=== PATIENT | male | born 1955 | race Asian ===

== ENCOUNTER → 2020-06-29 14:26 | Outpatient (BNVA) | payer MEDICARE, SELFPAY | PROVIDERS: PCP Internal Medicine; Visit Provider Urology | DX: I77.1 Stricture of artery (principal); N52.1 Erectile dysfunction due to diseases classified elsewhere | CPT/HCPCS: 99202 ==

== ENCOUNTER 2020-08-26 12:21 | Outpatient (REF) | payer MEDICARE, SELFPAY ==
[2020-08-26 13:49] LABS: MANUAL DIFF FLAG NO
[2020-08-26 14:01] LABS: Basophils Absolute Auto 0.1 X10*3/uL (0.0-0.2); Basophils Percent Auto 0.8 % (0-2); Eosinophils Absolute Auto 0.4 X10*3/uL (0.0-0.4); Eosinophils Percent Auto 4.9 % (0-4); Hematocrit 45.6 % (42-52); Hemoglobin 15.4 g/dl (14.0-18.0); Imm Gran Abs Auto 0.04 X10*3/uL (0.00-0.03); Imm Gran Pct Auto 0.6 % (0.0-0.4); Lymphocytes Absolute Auto 2.1 X10*3/uL (1.2-4.9); Lymphocytes Percent Auto 29.8 % (20-40); Mean Corpuscular HGB Conc 33.8 g/dl (31.0-36.0); Mean Corpuscular Hemoglobin 31.5 pg (27.0-33.0); Mean Corpuscular Volume 93.3 fL (80-98); Mean Platelet Volume 12.8 fL (9.4-12.4); Monocytes Absolute Auto 0.5 X10*3/uL (0.1-1.2); Monocytes Percent Auto 7.3 % (2-11); Neutrophils Percent Auto 56.6 % (45-73); Platelet Count 145 X10*3/uL (160-400); Red Blood Count 4.89 X10*6/uL (4.60-5.80); Red Cell Distribution Width 11.8 % (11.0-16.0); White Blood Count 7.1 X10*3/uL (4.8-10.8)
[2020-08-26 14:09] LABS: Estimated Average Glucose 128 mg/dL; Hemoglobin A1c % 6.1 %
[2020-08-26 14:26] LABS: Alanine Aminotransferase 94 U/L (0-40); Albumin Level 4.3 g/dL (3.5-5.0); Alkaline Phosphatase 59 U/L (39-117); Anion Gap 12 (12-20); Aspartate Amino Transferase 53 U/L (5-37); Bilirubin Total 0.9 mg/dL (0.0-1.0); Blood Urea Nitrogen 13 mg/dL (9-16); Calcium 9.3 mg/dL (8.4-10.2); Carbon Dioxide 30 mmol/L (22-29); Chloride 105 mmol/L (96-108); Estimated Glomerular Filt Rate > 60; Glucose Random 106 mg/dL (60-115); Sodium 142 mmol/L (135-145); Total Protein 7.8 g/dL (6.5-8.0)
== END 2020-08-26 12:22 | disposition home or self-care (01) ==
LOC: HO.HMGCLDS 12:21
PROVIDERS: PCP Internal Medicine; Visit Provider Internal Medicine
DX: I10 Essential (primary) hypertension (principal); R94.5 Abnormal results of liver function studies; N40.0 Benign prostatic hyperplasia without lower urinary tract symptoms; R73.03 Prediabetes; K42.9 Umbilical hernia without obstruction or gangrene; F52.21 Male erectile disorder; E66.09 Other obesity due to excess calories; D69.6 Thrombocytopenia, unspecified; Z68.32 Body mass index [BMI] 32.0-32.9, adult
CPT/HCPCS: 36415; 80053; 83036; 85025

== ENCOUNTER 2020-12-31 14:30 | Outpatient (REF) | payer MEDICARE, SELFPAY ==
[2020-12-31 16:50] LABS: Alanine Aminotransferase 90 U/L (0-40); Albumin Level 4.4 g/dL (3.5-5.0); Alkaline Phosphatase 66 U/L (39-117); Anion Gap 14 (12-20); Aspartate Amino Transferase 46 U/L (5-37); Bilirubin Total 0.9 mg/dL (0.0-1.0); Blood Urea Nitrogen 14 mg/dL (9-16); Calcium 9.3 mg/dL (8.4-10.2); Carbon Dioxide 25 mmol/L (22-29); Chloride 104 mmol/L (96-108); Estimated Glomerular Filt Rate > 60; Glucose Random 92 mg/dL (60-115); Potassium 4.1 mmol/L (3.3-5.1); Sodium 139 mmol/L (135-145); Total Protein 7.9 g/dL (6.5-8.0)
== END 2020-12-31 14:31 | disposition home or self-care (01) ==
LOC: HO.HMGCLDS 14:30
PROVIDERS: PCP Internal Medicine; Visit Provider Internal Medicine
DX: E66.9 Obesity, unspecified (principal); I10 Essential (primary) hypertension; K76.0 Fatty (change of) liver, not elsewhere classified; R73.03 Prediabetes; R79.89 Other specified abnormal findings of blood chemistry
CPT/HCPCS: 36415; 80053

== ENCOUNTER 2021-07-07 11:42 | Outpatient (REF) | payer MEDICARE, SELFPAY ==
[2021-07-07 13:56] LABS: Estimated Average Glucose 126 mg/dL
[2021-07-07 14:21] LABS: Alanine Aminotransferase 57 U/L (0-40); Albumin Level 4.2 g/dL (3.5-5.0); Alkaline Phosphatase 57 U/L (39-117); Anion Gap 13 (12-20); Aspartate Amino Transferase 37 U/L (5-37); Bilirubin Total 0.9 mg/dL (0.0-1.0); Blood Urea Nitrogen 16 mg/dL (9-16); Calcium 9.6 mg/dL (8.4-10.2); Carbon Dioxide 23 mmol/L (22-29); Chloride 106 mmol/L (96-108); Estimated Glomerular Filt Rate > 60; Glucose Random 105 mg/dL (60-115); Potassium 4.4 mmol/L (3.3-5.1); Sodium 138 mmol/L (135-145); Total Protein 7.4 g/dL (6.5-8.0)
== END 2021-07-07 11:43 | disposition home or self-care (01) ==
LOC: HO.HMGCLDS 11:42
PROVIDERS: PCP Internal Medicine; Visit Provider Internal Medicine
DX: K42.9 Umbilical hernia without obstruction or gangrene (principal); R94.5 Abnormal results of liver function studies; E66.9 Obesity, unspecified; R73.03 Prediabetes; K76.0 Fatty (change of) liver, not elsewhere classified; I10 Essential (primary) hypertension
CPT/HCPCS: 36415; 80053; 83036

== ENCOUNTER 2022-02-15 11:35 | Outpatient (REF) | payer MEDICARE, SELFPAY ==
[2022-02-15 13:49] LABS: Hematocrit 42.9 % (42.0-52.0); Hemoglobin 14.2 g/dl (14.0-18.0)
[2022-02-15 14:05] LABS: Alanine Aminotransferase 34 U/L (0-40); Alkaline Phosphatase 57 U/L (39-117); Anion Gap 11 (12-20); Aspartate Amino Transferase 24 U/L (5-37); Bilirubin Total 0.6 mg/dL (0.0-1.0); Blood Urea Nitrogen 14 mg/dL (9-16); Calcium 9.2 mg/dL (8.4-10.2); Carbon Dioxide 26 mmol/L (22-29); Chloride 107 mmol/L (96-108); Estimated Glomerular Filt Rate > 60; Glucose Random 108 mg/dL (60-115); Potassium 4.6 mmol/L (3.3-5.1); Sodium 139 mmol/L (135-145); Total Protein 7.5 g/dL (6.5-8.0)
[2022-02-15 14:25] LABS: TSH reflex Free T4 0.37 uIU/mL (0.32-4.0)
[2022-02-17 11:02] LABS: LDL Cholesterol Direct 107 mg/dL (<100)
== END 2022-02-15 11:36 | disposition home or self-care (01) ==
LOC: HO.HMGCLDS 11:35
PROVIDERS: PCP Internal Medicine; Visit Provider Internal Medicine
DX: I10 Essential (primary) hypertension (principal); K42.9 Umbilical hernia without obstruction or gangrene; R73.03 Prediabetes; R79.89 Other specified abnormal findings of blood chemistry; E66.09 Other obesity due to excess calories
CPT/HCPCS: 36415; 80053; 83721; 84443; 85014; 85018

== ENCOUNTER 2022-08-23 11:42 | Outpatient (REF) | payer MEDICARE, SELFPAY ==
[2022-08-23 14:02] LABS: Alanine Aminotransferase 34 U/L (0-40); Albumin Level 4.1 g/dL (3.5-5.0); Alkaline Phosphatase 59 U/L (39-117); Anion Gap 13 (12-20); Aspartate Amino Transferase 28 U/L (5-37); Bilirubin Total 0.5 mg/dL (0.0-1.0); Blood Urea Nitrogen 15 mg/dL (9-16); Calcium 9.3 mg/dL (8.4-10.2); Carbon Dioxide 26 mmol/L (22-29); Chloride 102 mmol/L (96-108); Estimated Glomerular Filt Rate > 60; Glucose Random 110 mg/dL (60-115); Potassium 4.5 mmol/L (3.3-5.1); Sodium 136 mmol/L (135-145); Total Protein 7.4 g/dL (6.5-8.0)
== END 2022-08-23 11:43 | disposition home or self-care (01) ==
LOC: HO.HMGCLDS 11:42
PROVIDERS: PCP Internal Medicine; Visit Provider Internal Medicine
DX: I10 Essential (primary) hypertension (principal); N40.0 Benign prostatic hyperplasia without lower urinary tract symptoms; R06.2 Wheezing; R73.03 Prediabetes; E66.09 Other obesity due to excess calories
CPT/HCPCS: 36415; 80053

== ENCOUNTER 2023-01-03 11:47 | Outpatient (REF) | payer MEDICARE, SELFPAY ==
[2023-01-03 14:17] LABS: MANUAL DIFF FLAG NO
[2023-01-03 14:21] LABS: Basophils Percent Auto 0.6 % (0-2); Eosinophils Absolute Auto 0.3 X10*3/uL (0.0-0.4); Eosinophils Percent Auto 3.5 % (0-4); Hematocrit 43.3 % (42.0-52.0); Hemoglobin 14.7 g/dl (14.0-18.0); Imm Gran Abs Auto 0.03 X10*3/uL (0.00-0.03); Imm Gran Pct Auto 0.4 % (0.0-0.4); Lymphocytes Absolute Auto 1.8 X10*3/uL (1.2-4.9); Mean Corpuscular HGB Conc 33.9 g/dl (31.0-36.0); Mean Corpuscular Hemoglobin 31.4 pg (27.0-33.0); Mean Corpuscular Volume 92.5 fL (80.0-98.0); Mean Platelet Volume 12.4 fL (9.4-12.4); Monocytes Absolute Auto 0.5 X10*3/uL (0.1-1.2); Monocytes Percent Auto 7.4 % (2-11); Neutrophils Absolute Auto 4.5 x10*3/uL (2.0-8.3); Neutrophils Percent Auto 63.1 % (45-73); Platelet Count 136 X10*3/uL (160-400); Red Blood Count 4.68 X10*6/uL (4.60-5.80); Red Cell Distribution Width 11.8 % (11.0-16.0); White Blood Count 7.2 X10*3/uL (4.8-10.8)
[2023-01-03 14:45] LABS: Alanine Aminotransferase 44 U/L (0-40); Albumin Level 4.1 g/dL (3.5-5.0); Alkaline Phosphatase 62 U/L (39-117); Anion Gap 10 (12-20); Aspartate Amino Transferase 29 U/L (5-37); Bilirubin Total 0.7 mg/dL (0.0-1.0); Blood Urea Nitrogen 15 mg/dL (9-16); Calcium 9.1 mg/dL (8.4-10.2); Carbon Dioxide 27 mmol/L (22-29); Chloride 106 mmol/L (96-108); Estimated Glomerular Filt Rate > 60; Glucose Random 112 mg/dL (60-115); Potassium 4.2 mmol/L (3.3-5.1); Sodium 139 mmol/L (135-145); Total Protein 7.3 g/dL (6.5-8.0)
[2023-01-03 14:47] LABS: Estimated Average Glucose 123 mg/dL; Hemoglobin A1c % 5.9 %
[2023-01-04 11:28] LABS: LDL Cholesterol Direct 92 mg/dL (<100)
== END 2023-01-03 11:48 | disposition home or self-care (01) ==
LOC: HO.HMGCLDS 11:47
PROVIDERS: PCP Internal Medicine; Visit Provider Internal Medicine
DX: I10 Essential (primary) hypertension (principal); N40.0 Benign prostatic hyperplasia without lower urinary tract symptoms; R73.03 Prediabetes; E66.09 Other obesity due to excess calories; H40.9 Unspecified glaucoma; K42.9 Umbilical hernia without obstruction or gangrene
CPT/HCPCS: 36415; 80053; 83036; 83721; 85025

== ENCOUNTER 2023-07-20 11:34 | Outpatient (REF) | payer MEDICARE, SELFPAY ==
[2023-07-20 13:34] LABS: MANUAL DIFF FLAG NO
[2023-07-20 13:52] LABS: Estimated Average Glucose 117 mg/dL; Hemoglobin A1c % 5.7 % (<6.0)
[2023-07-20 13:56] LABS: Basophils Percent Auto 0.7 % (0-2); Eosinophils Absolute Auto 0.3 X10*3/uL (0.0-0.4); Eosinophils Percent Auto 4.5 % (0-4); Hematocrit 44.8 % (42.0-52.0); Hemoglobin 14.7 g/dl (14.0-18.0); Imm Gran Abs Auto 0.05 X10*3/uL (0.00-0.03); Imm Gran Pct Auto 0.8 % (0.0-0.4); Lymphocytes Absolute Auto 1.9 X10*3/uL (1.2-4.9); Lymphocytes Percent Auto 31.4 % (20-40); Mean Corpuscular HGB Conc 32.8 g/dl (31.0-36.0); Mean Corpuscular Hemoglobin 30.3 pg (27.0-33.0); Mean Corpuscular Volume 92.4 fL (80.0-98.0); Mean Platelet Volume 12.6 fL (9.4-12.4); Monocytes Absolute Auto 0.5 X10*3/uL (0.1-1.2); Monocytes Percent Auto 7.6 % (2-11); Neutrophils Absolute Auto 3.3 x10*3/uL (2.0-8.3); Platelet Count 142 X10*3/uL (160-400); Red Blood Count 4.85 X10*6/uL (4.60-5.80); Red Cell Distribution Width 11.9 % (11.0-16.0)
[2023-07-20 14:06] LABS: Alanine Aminotransferase 51 U/L (0-40); Albumin Level 4.2 g/dL (3.5-5.0); Alkaline Phosphatase 54 U/L (39-117); Anion Gap 13 (12-20); Aspartate Amino Transferase 39 U/L (5-37); Bilirubin Total 0.6 mg/dL (0.0-1.0); Blood Urea Nitrogen 12 mg/dL (9-16); Calcium 9.7 mg/dL (8.4-10.2); Carbon Dioxide 24 mmol/L (22-29); Chloride 105 mmol/L (96-108); Cholesterol 157 mg/dL (<200); Estimated Glomerular Filt Rate > 60; Glucose Fasting 112 mg/dL (60-99); HDL Cholesterol 37 mg/dL (>40); LDL Cholesterol Calculated 99 mg/dL (<100); Potassium 4.3 mmol/L (3.3-5.1); Sodium 138 mmol/L (135-145); Triglycerides 109 mg/dL (<150)
[2023-07-20 14:25] LABS: TSH reflex Free T4 0.35 uIU/mL (0.32-4.0)
== END 2023-07-20 11:35 | disposition home or self-care (01) ==
LOC: HO.HMGCLDS 11:34
PROVIDERS: PCP Internal Medicine; Visit Provider Internal Medicine
DX: I10 Essential (primary) hypertension (principal); N40.0 Benign prostatic hyperplasia without lower urinary tract symptoms; R73.03 Prediabetes; K42.9 Umbilical hernia without obstruction or gangrene; E66.09 Other obesity due to excess calories
CPT/HCPCS: 36415; 80053; 80061; 83036; 84443; 85025

== ENCOUNTER 2023-08-08 12:49 | Outpatient (AMB) | payer MEDICARE, SELFPAY ==
--- NOTE | 2023-08-08 12:54 | MHC.PC.OV ---
Vital Signs 08/08/23 12:56 Height 5 ft 5 in Weight 192 lb BMI 31.9 BP 134/88 Blood Pressure Location Lt brachial Position Sitting Pulse 72 Pulse Source Pulse Oximeter Pulse Oximetry (%) 98 Oxygen Delivery Method Room Air Intake Visit Reasons: 6 month follow up Allergies No Known Allergies Allergy (Verified 08/08/23 12:56) Medication List - Last Reconciled 08/08/23 by Alexsander Haines MD albuterol sulfate 90 mcg/actuation (ProAir HFA) 1 inh inhalation QID PRN 30 days cholecalciferol (vitamin D3) 25 mcg PO DAILY fluticasone propionate 50 mcg/actuation 1 spray intranasal ONCE 90 days lisinopril 10 mg PO DAILY 90 days sildenafil 100 mg PO DAILY PRN terazosin 10 mg PO DAILY timolol maleate 0.5% 1 drp ophthalmic (eye) DAILY Tobacco use date assessed: 08/08/23 Fall risk assessment: No Falls in past year Last assessed Fall Risk: 08/08/23 Dental Screening Dental Screen Date: 08/08/23 Did you have a dental visit in the last 12 months?: Yes Did you have a dental problem in the last 6 months where you did not have access to dental care?: No Was dental information given to patient?: Patient has dentist HPI 6 month follow up HPI Details Patient is a 67-year-old male came in today for his 6 month follow-up appointment. Labs done recently reviewed Thrombocytopenia stable Fasting sugar is 112 with hemoglobin A1c of 5.7% Liver enzymes slightly elevated Patient offer no complaints His umbilical hernia is slightly enlarged however patient is reluctant to have any surgery at this time Blood pressure is stable patient is taking all his medications regularly he is on lisinopril 10 mg and is tolerating medication no side effects. BMI is elevated patient is having difficulty losing weight Urological care through urology Glaucoma: [facility] Labs to be done before next visit Patient is prediabetic trying to control his diet hemoglobin A1c is stable Follow-up 6 months [facility] Medical History Umbilical hernia LFT elevation Obesity Pre-diabetes Benign prostatic hyperplasia Fatty liver Hypertension, essential Surgical History History of vasectomy Family History Father Lung cancer Mother Cancer Brother No problems noted. Sister No problems noted. Social History Housing: Condominium Alcohol intake: former Patient Tobacco Use Status: Never used Tobacco e-Cigarette/Vaping Use: Never Used Second Hand Smoke Exposure: No Current occupational status: unemployed Cognitive needs: No Hearing needs: No Vision needs: Yes Questionnaire PHQ-9 Over the last 2 weeks, how often have you been bothered by any of the following problems? 1. Little interest or pleasure in doing things: not at all 2. Feeling down, depressed, or hopeless: not at all 3. Trouble falling or staying asleep, or sleeping too much: not at all 4. Feeling tired or having little energy: not at all 5. Poor appetite or overeating: not at all 6. Feeling bad about yourself - or that you are a failure or have let yourself or your family down: not at all 7. Trouble concentrating on things, such as reading the newspaper or watching television: not at all 8. Moving or speaking so slowly that other people could have noticed. Or the opposite - being so fidgety or restless that you have been moving around a lot more than usual: not at all 9. Thoughts that you would be better off or of hurting yourself in some way: not at all Total score: 0 Depression Screening Interpretation: Negative Depression Screening Done: Yes [id number] - PHQ-9 Billing: Yes Source: Developed by Drs. Jamie Kohler, Marie Naqvi, Rafat Alcala and colleagues, with an educational chay from [employer]. Thrive Questionnaire Date Thrive assessed: 08/08/23 I am a: Patient What is your living situation today?: I have a steady place to live Within the past 12 months, did the food you bought not last and you didn't have the money to get more?: Never true Within the past 12 months, did you worry whether your food would run out before you got money to buy more?: Never true Do you have trouble paying for medicines?: No Do you have trouble getting transportation to medical appointments?: No Do you have trouble paying your heating and electricity bill?: No Do you have trouble taking care of your child, family member or friend?: No Do you have trouble with day-to-day activities such as bathing, preparing meals, shopping, managing finances, etc.?: No Are you currently unemployed and looking for a job?: No Are you interested in more education?: No Please select the resources that you would like help with: None Currently or been in a relationship where the following occur: no concerns reported AUDIT C Alcohol Use Questionnaire (AUDIT-C) 1. How often do you have a drink containing alcohol?: Monthly or less 2. How many drinks containing alcohol do you have on a typical day when you are drinking?: 1 or 2 3. How often do you have six or more drinks on one occasion?: Never Total Score: 1 NINFA-7 AMB Questionnaire NINFA-7 Date NINFA - 7 assessed: 08/08/23 Feeling nervous, anxious, or on edge: 0 = Not at all Not being able to stop or control worryin = Not at all Worrying too much about different things: 0 = Not at all Trouble relaxin = Not at all Being so restless that it is hard to sit still: 0 = Not at all Becoming easily annoyed or irritable: 0 = Not at all Feeling afraid as if something awful might happen: 0 = Not at all Total NINFA-7 score (0-4 normal; 5-9 mild; 10-14 moderate; 15-21 severe): 0 Source: Developed by Drs. Jamie Kohler, Marie Naqvi, Rafat Alcala and colleagues, with an educational chay from [employer]. NINFA-7 Assessment Billing NINFA-7 Assessment Tool: NINFA-7 Assessment 35028 Review of Systems Const Denies chills and Denies fever(s) ENT Denies epistaxis and Denies nasal discharge Card Denies chest pain Resp Denies chest congestion, Denies cough and Denies hemoptysis GI Denies diarrhea and Denies nausea Skin/Breast Denies rash Neuro Reports no additional complaints Psych Reports no additional complaints Endo Reports no additional complaints Physical exam (Primary Care) Vital Signs: Last Vital Signs Pulse 72 08/08/23 12:56 BP 134/88 08/08/23 12:56 Pulse Ox 98 08/08/23 12:56 Oxygen Delivery Method Room Air 08/08/23 12:56 BMI result Body Mass Index 31.9 Tobacco/Smoking Status: Tobacco use Status Tobacco use date assessed 08/08/23 08/08/23 13:01 Patient Tobacco Use Status Never used Tobacco 08/08/23 12:54 e-Cigarette/Vaping Use Never Used 08/08/23 12:54 PHQ-9: PHQ-9 Score PHQ-9: Total score 0 08/08/23 13:01 Depression Screening Interpretation: Negative Thrive Assessment: Date of Thrive Assessment Date Thrive assessed 08/08/23 08/08/23 13:01 Currently or been in a relationship where the following occur: no concerns reported Const General: cooperative, comfortable and no acute distress Orientation/consciousness: patient oriented x3 HENMT Head: Yes normocephalic Eyes General: appearance normal, both eyes and all related structures Neck Neck: Yes supple Resp Effort & Inspection: normal respiratory effort, no cough and no stridor Cardio Rhythm: regular rhythm Heart sounds: S1 normal heart sound present and S2 normal heart sound present GI Other: umbilical hernia stable size of small lemon Skin General skin exam: turgor normal Neuro General: patient oriented x3, tone normal and moves all extremities Extrem Right lower extremity: no edema Left lower extremity: no edema Assessment and Plan Assessment & Plan (1) Hypertension, essential: Code(s): I10 - Essential (primary) hypertension (2) Benign prostatic hyperplasia: Code(s): N40.0 - Benign prostatic hyperplasia without lower urinary tract symptoms Qualifiers: Lower urinary tract symptom presence: symptoms absent Qualified Code(s): N40.0 - Benign prostatic hyperplasia without lower urinary tract symptoms (3) Pre-diabetes: Code(s): R73.03 - Prediabetes (4) Umbilical hernia: Code(s): K42.9 - Umbilical hernia without obstruction or gangrene Qualifiers: Obstruction and gangrene presence: without obstruction or gangrene Qualified Code(s): K42.9 - Umbilical hernia without obstruction or gangrene (5) Obesity due to excess calories: Code(s): E66.09 - Other obesity due to excess calories Qualifiers: Body mass index: BMI 32.0-32.9 Obesity classification: adult class 1 (BMI 30 - 34.9) Serious obesity comorbidity presence: with serious comorbidity Qualified Code(s): E66.09 - Other obesity due to excess calories; Z68.32 - Body mass index [BMI] 32.0-32.9, adult (6) Glaucoma: Code(s): H40.9 - Unspecified glaucoma Qualifiers: Glaucoma type: unspecified Laterality: unspecified laterality Qualified Code(s): H40.9 - Unspecified glaucoma (7) Thrombocytopenia: Code(s): D69.6 - Thrombocytopenia, unspecified (8) LFT elevation: Code(s): R79.89 - Other specified abnormal findings of blood chemistry (9) Fatty liver: Code(s): K76.0 - Fatty (change of) liver, not elsewhere classified Plan Patient is a 67-year-old male came in today for his 6 month follow-up appointment. Labs done recently reviewed Thrombocytopenia stable Fasting sugar is 112 with hemoglobin A1c of 5.7% Liver enzymes slightly elevated Patient offer no complaints His umbilical hernia is slightly enlarged however patient is reluctant to have any surgery at this time Blood pressure is stable patient is taking all his medications regularly he is on lisinopril 10 mg and is tolerating medication no side effects. BMI is elevated patient is having difficulty losing weight Urological care through urology Glaucoma: [facility] Labs to be done before next visit Patient is prediabetic trying to control his diet hemoglobin A1c is stable Follow-up 6 months Orders: Orders Complete Blood Count Auto Diff 3 Months D69.6 - Thrombocytopenia, unspecified, E66.09 - Other obesity due to excess calories, H40.9 - Unspecified glaucoma, I10 - Essential (primary) hypertension, K42.9 - Umbilical hernia without obstruction or gangrene, K76.0 - Fatty (change of) liver, not elsewhere classified, N40.0 - Benign prostatic hyperplasia without lower urinary tract symptoms, R73.03 - Prediabetes, R79.89 - Other specified abnormal findings of blood chemistry Comprehensive Met. Panel 3 Months D69.6 - Thrombocytopenia, unspecified, E66.09 - Other obesity due to excess calories, H40.9 - Unspecified glaucoma, I10 - Essential (primary) hypertension, K42.9 - Umbilical hernia without obstruction or gangrene, K76.0 - Fatty (change of) liver, not elsewhere classified, N40.0 - Benign prostatic hyperplasia without lower urinary tract symptoms, R73.03 - Prediabetes, R79.89 - Other specified abnormal findings of blood chemistry Coding Level of Care Code Est Pt Level 4 (81116) Diagnoses Hypertension, essential I10 Benign prostatic hyperplasia without lower urinary tract symptoms N40.0 Lower urinary tract symptom presence: symptoms absent Pre-diabetes R73.03 Umbilical hernia without obstruction and without gangrene K42.9 Obstruction and gangrene presence: without obstruction or gangrene Class 1 obesity due to excess calories with serious comorbidity and body mass index (BMI) of 32.0 to 32.9 in adult E66.09; Z68.32 Body mass index: BMI 32.0-32.9 Obesity classification: adult class 1 (BMI 30 - 34.9) Serious obesity comorbidity presence: with serious comorbidity Glaucoma, unspecified glaucoma type, unspecified laterality H40.9 Glaucoma type: unspecified Laterality: unspecified laterality Thrombocytopenia D69.6 LFT elevation R79.89 Fatty liver K76.0 Additional Codes NINFA-7 Assessment Billing - NINFA-7 Assessment Tool: NINFA-7 Assessment [id number] ([id number])
[2023-08-08 12:56] VITALS: BP 134/88; PULSE 72; O2SAT 98; BMI 31.9
== END 2023-08-08 13:14 | disposition home or self-care (01) ==
LOC: HO.HMGC 12:49
PROVIDERS: PCP Internal Medicine; Visit Provider Internal Medicine
DX: I10 Essential (primary) hypertension (principal); N40.0 Benign prostatic hyperplasia without lower urinary tract symptoms; R73.03 Prediabetes; D69.6 Thrombocytopenia, unspecified; K42.9 Umbilical hernia without obstruction or gangrene; Z68.32 Body mass index [BMI] 32.0-32.9, adult; E66.09 Other obesity due to excess calories; H40.9 Unspecified glaucoma; R79.89 Other specified abnormal findings of blood chemistry; K76.0 Fatty (change of) liver, not elsewhere classified
CPT/HCPCS: 99214

== ENCOUNTER 2023-11-30 14:07 | Outpatient (REF) | payer MEDICARE, SELFPAY ==
[2023-11-30 17:08] LABS: MANUAL DIFF FLAG NO
[2023-11-30 17:09] LABS: Basophils Percent Auto 0.6 % (0-2); Eosinophils Absolute Auto 0.3 X10*3/uL (0.0-0.4); Eosinophils Percent Auto 3.9 % (0-4); Hematocrit 42.6 % (42.0-52.0); Hemoglobin 14.1 g/dl (14.0-18.0); Imm Gran Abs Auto 0.06 X10*3/uL (0.00-0.03); Imm Gran Pct Auto 0.9 % (0.0-0.4); Lymphocytes Absolute Auto 1.9 X10*3/uL (1.2-4.9); Mean Corpuscular HGB Conc 33.1 g/dl (31.0-36.0); Mean Corpuscular Hemoglobin 30.7 pg (27.0-33.0); Mean Corpuscular Volume 92.6 fL (80.0-98.0); Mean Platelet Volume 11.9 fL (9.4-12.4); Monocytes Absolute Auto 0.6 X10*3/uL (0.1-1.2); Monocytes Percent Auto 8.5 % (2-11); Neutrophils Absolute Auto 3.7 x10*3/uL (2.0-8.3); Neutrophils Percent Auto 57.1 % (45-73); Platelet Count 181 X10*3/uL (160-400); Red Cell Distribution Width 11.6 % (11.0-16.0); White Blood Count 6.5 X10*3/uL (4.8-10.8)
[2023-11-30 17:22] LABS: Alanine Aminotransferase 44 U/L (0-40); Albumin Level 4.1 g/dL (3.5-5.0); Alkaline Phosphatase 61 U/L (39-117); Anion Gap 10 (12-20); Aspartate Amino Transferase 30 U/L (5-37); Bilirubin Total 0.5 mg/dL (0.0-1.0); Blood Urea Nitrogen 14 mg/dL (9-16); Calcium 9.4 mg/dL (8.4-10.2); Carbon Dioxide 29 mmol/L (22-29); Chloride 106 mmol/L (96-108); Estimated Glomerular Filt Rate > 60; Glucose Random 112 mg/dL (60-115); Potassium 3.9 mmol/L (3.3-5.1); Sodium 141 mmol/L (135-145); Total Protein 7.7 g/dL (6.5-8.0)
== END 2023-11-30 14:08 | disposition home or self-care (01) ==
LOC: HO.HMGCLDS 14:07
PROVIDERS: PCP Internal Medicine; Visit Provider Internal Medicine
DX: I10 Essential (primary) hypertension (principal); N40.0 Benign prostatic hyperplasia without lower urinary tract symptoms; R73.03 Prediabetes; K42.9 Umbilical hernia without obstruction or gangrene; E66.09 Other obesity due to excess calories; H40.9 Unspecified glaucoma; D69.6 Thrombocytopenia, unspecified; R79.89 Other specified abnormal findings of blood chemistry; K76.0 Fatty (change of) liver, not elsewhere classified
CPT/HCPCS: 36415; 80053; 85025

== ENCOUNTER 2023-12-04 11:55 | Outpatient (AMB) | payer MEDICARE, SELFPAY ==
--- NOTE | 2023-12-04 11:56 | MHC.PC.OV ---
Vital Signs 12/04/23 11:57 Height 5 ft 5 in Weight 190 lb 6 oz BMI 31.7 BP 140/90 H Blood Pressure Location Lt brachial Position Sitting Pulse 83 Pulse Source Pulse Oximeter Pulse Oximetry (%) 98 Oxygen Delivery Method Room Air Intake Visit Reasons: 4 Month F/U Allergies No Known Allergies Allergy (Verified 12/04/23 11:57) Medication List - Last Reconciled 12/04/23 by Alexsander Haines MD cholecalciferol (vitamin D3) 25 mcg PO DAILY fluticasone propionate 50 mcg/actuation 1 spray intranasal ONCE 90 days lisinopril 10 mg PO DAILY 90 days sildenafil 100 mg PO DAILY PRN terazosin 10 mg PO DAILY timolol maleate 0.5% 1 drp ophthalmic (eye) DAILY Tobacco use date assessed: 12/04/23 Last assessed Fall Risk: 12/04/23 Dental Screening Dental Screen Date: 12/04/23 Did you have a dental visit in the last 12 months?: Yes Did you have a dental problem in the last 6 months where you did not have access to dental care?: No Was dental information given to patient?: Patient has dentist HPI 4 Month F/U HPI Details Patient is a 68-year-old male came in today for his 6 month follow-up appointment. Labs done recently reviewed Thrombocytopenia stable Fasting sugar stable Liver enzymes stable Allergic rhinitis stable with steroid nasal spray His umbilical hernia is slightly enlarged however patient is reluctant to have any surgery at this time Blood pressure is slightly elevated today, patient is taking all his medications regularly he is on lisinopril 10 mg and is tolerating medication no side effects. BMI is elevated patient is having difficulty losing weight Urological care through urology Glaucoma: Patient is seeing a doctor at [facility] Follow-up 6 months [facility] Medical History Umbilical hernia LFT elevation Obesity Pre-diabetes Benign prostatic hyperplasia Fatty liver Hypertension, essential Surgical History History of vasectomy Family History Father Lung cancer Mother Cancer Brother No problems noted. Sister No problems noted. Social History Housing: Condominium Alcohol intake: former Patient Tobacco Use Status: Never used Tobacco e-Cigarette/Vaping Use: Never Used Second Hand Smoke Exposure: No Current occupational status: unemployed Cognitive needs: No Hearing needs: No Vision needs: Yes Questionnaire PHQ-9 Over the last 2 weeks, how often have you been bothered by any of the following problems? Depression Screening Interpretation: Negative Depression Screening Done: Yes Source: Developed by Drs. Jamie Kohler, Rafat Rai and colleagues, with an educational chay from [employer]. Thrive Questionnaire Date Thrive assessed: 08/08/23 Currently or been in a relationship where the following occur: no concerns reported THRIVE Score: 0 AUDIT C Alcohol Use Questionnaire (AUDIT-C) 1. How often do you have a drink containing alcohol?: Monthly or less 2. How many drinks containing alcohol do you have on a typical day when you are drinking?: 1 or 2 3. How often do you have six or more drinks on one occasion?: Never Total Score: 1 Score Reviewed/Action Taken: Yes NINFA-7 AMB Questionnaire NINFA-7 Date NINFA - 7 assessed: 08/08/23 Source: Developed by Drs. Jamie Kohler, Rafat Rai and colleagues, with an educational chay from [employer]. Review of Systems Const Denies chills and Denies fever(s) ENT Denies epistaxis and Denies nasal discharge Card Denies chest pain Resp Denies chest congestion, Denies cough and Denies hemoptysis GI Denies diarrhea and Denies nausea Skin/Breast Denies rash Neuro Reports no additional complaints Psych Reports no additional complaints Endo Reports no additional complaints Physical exam (Primary Care) Vital Signs: Last Vital Signs Pulse 83 12/04/23 11:57 BP 140/90 H 12/04/23 11:57 Pulse Ox 98 12/04/23 11:57 Oxygen Delivery Method Room Air 12/04/23 11:57 BMI result Body Mass Index 31.7 Tobacco/Smoking Status: Tobacco use Status Tobacco use date assessed 12/04/23 12/04/23 12:00 Patient Tobacco Use Status Never used Tobacco 12/04/23 12:00 e-Cigarette/Vaping Use Never Used 12/04/23 12:00 Depression Screening Interpretation: Negative Thrive Assessment: Date of Thrive Assessment Date Thrive assessed 08/08/23 12/04/23 12:00 Currently or been in a relationship where the following occur: no concerns reported Const General: cooperative, comfortable and no acute distress Orientation/consciousness: patient oriented x3 HENMT Head: Yes normocephalic Eyes General: appearance normal, both eyes and all related structures Neck Neck: Yes supple Resp Effort & Inspection: normal respiratory effort, no cough and no stridor Cardio Rhythm: regular rhythm Heart sounds: S1 normal heart sound present and S2 normal heart sound present GI Other: umbilical hernia stable size of small lemon Skin General skin exam: turgor normal Neuro General: patient oriented x3, tone normal and moves all extremities Extrem Right lower extremity: no edema Left lower extremity: no edema Assessment and Plan Assessment & Plan (1) Hypertension, essential: Code(s): I10 - Essential (primary) hypertension (2) Benign prostatic hyperplasia: Code(s): N40.0 - Benign prostatic hyperplasia without lower urinary tract symptoms Qualifiers: Lower urinary tract symptom presence: symptoms absent Qualified Code(s): N40.0 - Benign prostatic hyperplasia without lower urinary tract symptoms (3) Pre-diabetes: Code(s): R73.03 - Prediabetes (4) Umbilical hernia: Code(s): K42.9 - Umbilical hernia without obstruction or gangrene Qualifiers: Obstruction and gangrene presence: without obstruction or gangrene Qualified Code(s): K42.9 - Umbilical hernia without obstruction or gangrene (5) Obesity due to excess calories: Code(s): E66.09 - Other obesity due to excess calories Qualifiers: Obesity classification: adult class 1 (BMI 30 - 34.9) Serious obesity comorbidity presence: with serious comorbidity Body mass index: BMI 32.0-32.9 Qualified Code(s): E66.09 - Other obesity due to excess calories; Z68.32 - Body mass index [BMI] 32.0-32.9, adult (6) Glaucoma: Code(s): H40.9 - Unspecified glaucoma Qualifiers: Glaucoma type: unspecified Laterality: unspecified laterality Qualified Code(s): H40.9 - Unspecified glaucoma (7) Thrombocytopenia: Code(s): D69.6 - Thrombocytopenia, unspecified (8) LFT elevation: Code(s): R79.89 - Other specified abnormal findings of blood chemistry (9) Fatty liver: Code(s): K76.0 - Fatty (change of) liver, not elsewhere classified Plan Patient is a 68-year-old male came in today for his 6 month follow-up appointment. Labs done recently reviewed Thrombocytopenia stable Fasting sugar stable Liver enzymes stable Allergic rhinitis stable with steroid nasal spray His umbilical hernia is slightly enlarged however patient is reluctant to have any surgery at this time Blood pressure is slightly elevated today, patient is taking all his medications regularly he is on lisinopril 10 mg and is tolerating medication no side effects. BMI is elevated patient is having difficulty losing weight Urological care through urology Glaucoma: [facility] Follow-up 6 months Orders: Orders Hemoglobin A1c 5 Months D69.6 - Thrombocytopenia, unspecified, E66.09 - Other obesity due to excess calories, H40.9 - Unspecified glaucoma, I10 - Essential (primary) hypertension, K42.9 - Umbilical hernia without obstruction or gangrene, K76.0 - Fatty (change of) liver, not elsewhere classified, N40.0 - Benign prostatic hyperplasia without lower urinary tract symptoms, R73.03 - Prediabetes, R79.89 - Other specified abnormal findings of blood chemistry Complete Blood Count Auto Diff 5 Months D69.6 - Thrombocytopenia, unspecified, E66.09 - Other obesity due to excess calories, H40.9 - Unspecified glaucoma, I10 - Essential (primary) hypertension, K42.9 - Umbilical hernia without obstruction or gangrene, K76.0 - Fatty (change of) liver, not elsewhere classified, N40.0 - Benign prostatic hyperplasia without lower urinary tract symptoms, R73.03 - Prediabetes, R79.89 - Other specified abnormal findings of blood chemistry Comprehensive Chana. Panel Fast 5 Months D69.6 - Thrombocytopenia, unspecified, E66.09 - Other obesity due to excess calories, H40.9 - Unspecified glaucoma, I10 - Essential (primary) hypertension, K42.9 - Umbilical hernia without obstruction or gangrene, K76.0 - Fatty (change of) liver, not elsewhere classified, N40.0 - Benign prostatic hyperplasia without lower urinary tract symptoms, R73.03 - Prediabetes, R79.89 - Other specified abnormal findings of blood chemistry Lipid Panel 5 Months D69.6 - Thrombocytopenia, unspecified, E66.09 - Other obesity due to excess calories, H40.9 - Unspecified glaucoma, I10 - Essential (primary) hypertension, K42.9 - Umbilical hernia without obstruction or gangrene, K76.0 - Fatty (change of) liver, not elsewhere classified, N40.0 - Benign prostatic hyperplasia without lower urinary tract symptoms, R73.03 - Prediabetes, R79.89 - Other specified abnormal findings of blood chemistry Coding Level of Care Code Est Pt Level 4 (63799) Diagnoses Hypertension, essential I10 Benign prostatic hyperplasia without lower urinary tract symptoms N40.0 Lower urinary tract symptom presence: symptoms absent Pre-diabetes R73.03 Umbilical hernia without obstruction and without gangrene K42.9 Obstruction and gangrene presence: without obstruction or gangrene Class 1 obesity due to excess calories with serious comorbidity and body mass index (BMI) of 32.0 to 32.9 in adult E66.09; Z68.32 Obesity classification: adult class 1 (BMI 30 - 34.9) Serious obesity comorbidity presence: with serious comorbidity Body mass index: BMI 32.0-32.9 Glaucoma, unspecified glaucoma type, unspecified laterality H40.9 Glaucoma type: unspecified Laterality: unspecified laterality Thrombocytopenia D69.6 LFT elevation R79.89 Fatty liver K76.0
[2023-12-04 11:57] VITALS: BP 140/90; PULSE 83; O2SAT 98; BMI 31.7
== END 2023-12-04 12:43 | disposition home or self-care (01) ==
PROVIDERS: PCP Internal Medicine; Visit Provider Internal Medicine
DX: I10 Essential (primary) hypertension (principal); D69.6 Thrombocytopenia, unspecified; E66.09 Other obesity due to excess calories; Z68.32 Body mass index [BMI] 32.0-32.9, adult; R73.03 Prediabetes; N40.0 Benign prostatic hyperplasia without lower urinary tract symptoms; K42.9 Umbilical hernia without obstruction or gangrene; H40.9 Unspecified glaucoma; R79.89 Other specified abnormal findings of blood chemistry; K76.0 Fatty (change of) liver, not elsewhere classified
CPT/HCPCS: 99214

== ENCOUNTER 2024-04-14 11:45 | Outpatient (REF) | payer MEDICARE, SELFPAY ==
[2024-04-14 13:10] LABS: MANUAL DIFF FLAG NO
[2024-04-14 13:24] LABS: Basophils Absolute Auto 0.1 X10*3/uL (0.0-0.2); Basophils Percent Auto 0.7 % (0-2); Eosinophils Absolute Auto 0.3 X10*3/uL (0.0-0.4); Eosinophils Percent Auto 4.1 % (0-4); Hematocrit 44.9 % (42.0-52.0); Imm Gran Abs Auto 0.03 X10*3/uL (0.00-0.03); Imm Gran Pct Auto 0.4 % (0.0-0.4); Lymphocytes Percent Auto 29.5 % (20-40); Mean Corpuscular HGB Conc 33.4 g/dl (31.0-36.0); Mean Corpuscular Hemoglobin 31.1 pg (27.0-33.0); Mean Platelet Volume 11.6 fL (9.4-12.4); Monocytes Absolute Auto 0.5 X10*3/uL (0.1-1.2); Monocytes Percent Auto 7.3 % (2-11); Platelet Count 160 X10*3/uL (160-400); Red Blood Count 4.83 X10*6/uL (4.60-5.80); Red Cell Distribution Width 11.8 % (11.0-16.0); White Blood Count 6.8 X10*3/uL (4.8-10.8)
[2024-04-14 13:38] LABS: Estimated Average Glucose 126 mg/dL; Hemoglobin A1C 150.0207 umol/L
[2024-04-14 13:43] LABS: Alanine Aminotransferase 77 U/L (0-40); Albumin Level 4.3 g/dL (3.5-5.0); Alkaline Phosphatase 51 U/L (39-117); Anion Gap 13 (12-20); Aspartate Amino Transferase 50 U/L (5-37); Bilirubin Total 0.7 mg/dL (0.0-1.0); Blood Urea Nitrogen 13 mg/dL (9-16); Calcium 9.5 mg/dL (8.4-10.2); Carbon Dioxide 26 mmol/L (22-29); Chloride 104 mmol/L (96-108); Cholesterol 164 mg/dL (<200); Estimated Glomerular Filt Rate > 60; Glucose Fasting 121 mg/dL (60-99); HDL Cholesterol 42 mg/dL (>40); LDL Cholesterol Calculated 98 mg/dL (<100); Potassium 4.5 mmol/L (3.3-5.1); Sodium 138 mmol/L (135-145); Total Protein 7.8 g/dL (6.5-8.0); Triglycerides 122 mg/dL (<150)
== END 2024-04-14 11:46 | disposition home or self-care (01) ==
LOC: HO.HMGCLDS 11:45
PROVIDERS: PCP Internal Medicine; Visit Provider Internal Medicine
DX: D69.6 Thrombocytopenia, unspecified (principal); H40.9 Unspecified glaucoma; E66.09 Other obesity due to excess calories; K42.9 Umbilical hernia without obstruction or gangrene; R79.89 Other specified abnormal findings of blood chemistry; R73.03 Prediabetes; N40.0 Benign prostatic hyperplasia without lower urinary tract symptoms; K76.0 Fatty (change of) liver, not elsewhere classified; I10 Essential (primary) hypertension
CPT/HCPCS: 36415; 80053; 80061; 83036; 85025

== ENCOUNTER 2024-04-18 12:38 | Outpatient (AMB) | payer MEDICARE, SELFPAY ==
[2024-04-18 12:44] VITALS: BP 136/80; PULSE 112; O2SAT 96; BMI 32.8
--- NOTE | 2024-04-18 12:44 | A.OFFPC_ITS ---
Vital Signs 04/18/24 12:44 Height 5 ft 5 in Weight 197 lb BMI 32.8 BP 136/80 Blood Pressure Location Rt brachial Position Sitting Pulse 112 H Pulse Source Pulse Oximeter Pulse Oximetry (%) 96 Oxygen Delivery Method Room Air Intake Visit Reasons: Annual PE Allergies No Known Allergies Allergy (Verified 04/18/24 12:46) Medication List - Last Reconciled 04/18/24 by Alexsander Haines MD cholecalciferol (vitamin D3) 25 mcg PO DAILY fluticasone propionate 50 mcg/actuation 1 spray intranasal ONCE 90 days lisinopril 10 mg PO DAILY 90 days sildenafil 100 mg PO DAILY PRN terazosin 10 mg PO DAILY timolol maleate 0.5% 1 drp ophthalmic (eye) DAILY Tobacco use date assessed: 04/18/24 Fall risk assessment: No Falls in past year Last assessed Fall Risk: 04/18/24 Dental Screening Dental Screen Date: 04/18/24 Did you have a dental visit in the last 12 months?: Yes Did you have a dental problem in the last 6 months where you did not have access to dental care?: No Was dental information given to patient?: Patient has dentist HPI Annual PE HPI Details Patient is a 68-year-old male came in today for his 6 month follow-up appointment. Patient is tachycardic today, he does not complain of any palpitation chest pain there is no shortness a breath We did got the EKG which shows heart rate of 101, no acute ST-T findings Labs done recently reviewed Thrombocytopenia stable Fasting sugar stable Liver enzymes stable Allergic rhinitis stable with steroid nasal spray His umbilical hernia is slightly enlarged however patient is reluctant to have any surgery at this time Blood pressure is stable today, he is on lisinopril 10 mg and is tolerating medication no side effects. BMI is elevated I would strongly recommend that patient start losing weight and start exercising regularly Urological care through urology Glaucoma: Patient is seeing a doctor at [facility] Follow-up 6 months [facility] Medical History Umbilical hernia LFT elevation Obesity Pre-diabetes Benign prostatic hyperplasia Fatty liver Hypertension, essential Surgical History History of vasectomy Family History Father Lung cancer Mother Cancer Brother No problems noted. Sister No problems noted. Social History Housing: Condominium Alcohol intake: former Patient Tobacco Use Status: Never used Tobacco e-Cigarette/Vaping Use: Never Used Second Hand Smoke Exposure: No service: Yes Current occupational status: unemployed Cognitive needs: No Hearing needs: No Vision needs: Yes Questionnaire PHQ-9 Over the last 2 weeks, how often have you been bothered by any of the following problems? 1. Little interest or pleasure in doing things: not at all 2. Feeling down, depressed, or hopeless: not at all 3. Trouble falling or staying asleep, or sleeping too much: not at all 4. Feeling tired or having little energy: not at all 5. Poor appetite or overeating: not at all 6. Feeling bad about yourself - or that you are a failure or have let yourself or your family down: not at all 7. Trouble concentrating on things, such as reading the newspaper or watching television: not at all 8. Moving or speaking so slowly that other people could have noticed. Or the opposite - being so fidgety or restless that you have been moving around a lot more than usual: not at all 9. Thoughts that you would be better off or of hurting yourself in some way: not at all Total score: 0 Depression Screening Interpretation: Negative Depression Screening Done: Yes Source: Developed by Drs. Jamie Kohler, Marie Naqvi, Rafat Alcala and colleagues, with an educational chay from [employer]. Thrive Questionnaire Date Thrive assessed: 04/18/24 I am a: Patient What is your living situation today?: I have a steady place to live Within the past 12 months, did the food you bought not last and you didn't have the money to get more?: Never true Within the past 12 months, did you worry whether your food would run out before you got money to buy more?: Never true Do you have trouble paying for medicines?: No Do you have trouble getting transportation to medical appointments?: No Do you have trouble paying your heating and electricity bill?: No Do you have trouble taking care of your child, family member or friend?: No Do you have trouble with day-to-day activities such as bathing, preparing meals, shopping, managing finances, etc.?: No Are you currently unemployed and looking for a job?: I choose not to answer this question Are you interested in more education?: I choose not to answer this question Please select the resources that you would like help with: Housing/Fpc Currently or been in a relationship where the following occur: No concerns reported THRIVE Score: 0 AUDIT C Alcohol Use Questionnaire (AUDIT-C) 1. How often do you have a drink containing alcohol?: Monthly or less 2. How many drinks containing alcohol do you have on a typical day when you are drinking?: 1 or 2 3. How often do you have six or more drinks on one occasion?: Never Total Score: 1 NINFA-7 AMB Questionnaire NINFA-7 Date NINFA - 7 assessed: 04/18/24 Feeling nervous, anxious, or on edge: 0 = Not at all Not being able to stop or control worryin = Not at all Worrying too much about different things: 0 = Not at all Trouble relaxin = Not at all Being so restless that it is hard to sit still: 0 = Not at all Becoming easily annoyed or irritable: 0 = Not at all Feeling afraid as if something awful might happen: 0 = Not at all Total NINFA-7 score (0-4 normal; 5-9 mild; 10-14 moderate; 15-21 severe): 0 Source: Developed by Drs. Jamie Kohler, Marie Naqvi, Rafat Alcala and colleagues, with an educational chay from [employer]. Review of Systems Const Denies chills and Denies fever(s) ENT Denies epistaxis and Denies nasal discharge Card Denies chest pain Resp Denies chest congestion, Denies cough and Denies hemoptysis GI Denies diarrhea and Denies nausea Skin/Breast Denies rash Neuro Reports no additional complaints Psych Reports no additional complaints Endo Reports no additional complaints Physical exam (Primary Care) Vital Signs: Last Vital Signs Pulse 112 H 04/18/24 12:44 BP 136/80 04/18/24 12:44 Pulse Ox 96 04/18/24 12:44 Oxygen Delivery Method Room Air 04/18/24 12:44 BMI result Body Mass Index 32.8 Tobacco/Smoking Status: Tobacco use Status Tobacco use date assessed 04/18/24 04/18/24 12:49 Patient Tobacco Use Status Never used Tobacco 04/18/24 12:49 e-Cigarette/Vaping Use Never Used 04/18/24 12:49 PHQ-9: PHQ-9 Score PHQ-9: Total score 0 04/18/24 12:57 Depression Screening Interpretation: Negative Thrive Assessment: Date of Thrive Assessment Date Thrive assessed 04/18/24 04/18/24 12:49 Currently or been in a relationship where the following occur: No concerns reported Const General: cooperative, comfortable and no acute distress Orientation/consciousness: patient oriented x3 HENMT Head: Yes normocephalic Eyes General: appearance normal, both eyes and all related structures Neck Neck: Yes supple Resp Effort & Inspection: normal respiratory effort, no cough and no stridor Cardio Rhythm: regular rhythm Heart sounds: S1 normal heart sound present and S2 normal heart sound present GI Other: umbilical hernia stable size of small lemon Skin General skin exam: turgor normal Neuro General: patient oriented x3, tone normal and moves all extremities Extrem Right lower extremity: no edema Left lower extremity: no edema Office Procedures EKG [id number], Complete Assessment and Plan Assessment & Plan (1) Hypertension, essential: Code(s): I10 - Essential (primary) hypertension (2) Benign prostatic hyperplasia: Code(s): N40.0 - Benign prostatic hyperplasia without lower urinary tract symptoms Qualifiers: Lower urinary tract symptom presence: symptoms absent Qualified Code(s): N40.0 - Benign prostatic hyperplasia without lower urinary tract symptoms (3) Pre-diabetes: Code(s): R73.03 - Prediabetes (4) Umbilical hernia: Code(s): K42.9 - Umbilical hernia without obstruction or gangrene Qualifiers: Obstruction and gangrene presence: without obstruction or gangrene Qualified Code(s): K42.9 - Umbilical hernia without obstruction or gangrene (5) Obesity due to excess calories: Code(s): E66.09 - Other obesity due to excess calories Qualifiers: Body mass index: BMI 32.0-32.9 Obesity classification: adult class 1 (BMI 30 - 34.9) Serious obesity comorbidity presence: with serious comorbidity Qualified Code(s): E66.09 - Other obesity due to excess calories; Z68.32 - Body mass index [BMI] 32.0-32.9, adult (6) Glaucoma: Code(s): H40.9 - Unspecified glaucoma Qualifiers: Glaucoma type: unspecified Laterality: unspecified laterality Qualified Code(s): H40.9 - Unspecified glaucoma (7) Thrombocytopenia: Code(s): D69.6 - Thrombocytopenia, unspecified (8) LFT elevation: Code(s): R79.89 - Other specified abnormal findings of blood chemistry (9) Fatty liver: Code(s): K76.0 - Fatty (change of) liver, not elsewhere classified (10) Tachycardia: Code(s): R00.0 - Tachycardia, unspecified Plan Patient is a 68-year-old male came in today for his 6 month follow-up appointment. Patient is tachycardic today, he does not complain of any palpitation chest pain there is no shortness a breath We did got the EKG which shows heart rate of 101, no acute ST-T findings Labs done recently reviewed Thrombocytopenia stable Fasting sugar stable Liver enzymes stable Allergic rhinitis stable with steroid nasal spray His umbilical hernia is slightly enlarged however patient is reluctant to have any surgery at this time Blood pressure is stable today, he is on lisinopril 10 mg and is tolerating medication no side effects. BMI is elevated I would strongly recommend that patient start losing weight and start exercising regularly Urological care through urology Glaucoma: [facility] Follow-up 6 months Orders: Orders AMB EKG-In Office Today R00.0 - Tachycardia, unspecified Complete Blood Count Auto Diff 6 Months D69.6 - Thrombocytopenia, unspecified, E66.09 - Other obesity due to excess calories, H40.9 - Unspecified glaucoma, I10 - Essential (primary) hypertension, K42.9 - Umbilical hernia without obstruction or gangrene, K76.0 - Fatty (change of) liver, not elsewhere classified, N40.0 - Benign prostatic hyperplasia without lower urinary tract symptoms, R00.0 - Tachycardia, unspecified, R73.03 - Prediabetes, Z68.32 - Body mass index [BMI] 32.0-32.9, adult Comprehensive [place]. Panel Fast 6 Months D69.6 - Thrombocytopenia, unspecified, E66.09 - Other obesity due to excess calories, H40.9 - Unspecified glaucoma, I10 - Essential (primary) hypertension, K42.9 - Umbilical hernia without obstruction or gangrene, K76.0 - Fatty (change of) liver, not elsewhere classified, N40.0 - Benign prostatic hyperplasia without lower urinary tract symptoms, R00.0 - Tachycardia, unspecified, R73.03 - Prediabetes, Z68.32 - Body mass index [BMI] 32.0-32.9, adult Hemoglobin A1c 6 Months D69.6 - Thrombocytopenia, unspecified, E66.09 - Other obesity due to excess calories, H40.9 - Unspecified glaucoma, I10 - Essential (primary) hypertension, K42.9 - Umbilical hernia without obstruction or gangrene, K76.0 - Fatty (change of) liver, not elsewhere classified, N40.0 - Benign prostatic hyperplasia without lower urinary tract symptoms, R00.0 - Tachycardia, unspecified, R73.03 - Prediabetes, Z68.32 - Body mass index [BMI] 32.0-32.9, adult Lipid Panel 6 Months D69.6 - Thrombocytopenia, unspecified, E66.09 - Other obesity due to excess calories, H40.9 - Unspecified glaucoma, I10 - Essential (primary) hypertension, K42.9 - Umbilical hernia without obstruction or gangrene, K76.0 - Fatty (change of) liver, not elsewhere classified, N40.0 - Benign prostatic hyperplasia without lower urinary tract symptoms, R00.0 - Tachycardia, unspecified, R73.03 - Prediabetes, Z68.32 - Body mass index [BMI] 32.0-32.9, adult TSH reflex Free T4 6 Months D69.6 - Thrombocytopenia, unspecified, E66.09 - Other obesity due to excess calories, H40.9 - Unspecified glaucoma, I10 - Essential (primary) hypertension, K42.9 - Umbilical hernia without obstruction or gangrene, K76.0 - Fatty (change of) liver, not elsewhere classified, N40.0 - Benign prostatic hyperplasia without lower urinary tract symptoms, R00.0 - Tachycardia, unspecified, R73.03 - Prediabetes, Z68.32 - Body mass index [BMI] 32.0-32.9, adult Coding Level of Care Code Est Pt Level 4 (05851) Complex EM visit Add On G2211 Diagnoses Hypertension, essential I10 Benign prostatic hyperplasia without lower urinary tract symptoms N40.0 Lower urinary tract symptom presence: symptoms absent Pre-diabetes R73.03 Umbilical hernia without obstruction and without gangrene K42.9 Obstruction and gangrene presence: without obstruction or gangrene Class 1 obesity due to excess calories with serious comorbidity and body mass index (BMI) of 32.0 to 32.9 in adult E66.09; Z68.32 Body mass index: BMI 32.0-32.9 Obesity classification: adult class 1 (BMI 30 - 34.9) Serious obesity comorbidity presence: with serious comorbidity Glaucoma, unspecified glaucoma type, unspecified laterality H40.9 Glaucoma type: unspecified Laterality: unspecified laterality Thrombocytopenia D69.6 LFT elevation R79.89 Fatty liver K76.0 Tachycardia R00.0 CPT Codes EKG - CPT: 48847-[id number], Complete ([id number])
== END 2024-04-18 17:44 | disposition home or self-care (01) ==
PROVIDERS: PCP Internal Medicine; Visit Provider Internal Medicine
DX: I10 Essential (primary) hypertension (principal); N40.0 Benign prostatic hyperplasia without lower urinary tract symptoms; R73.03 Prediabetes; K42.9 Umbilical hernia without obstruction or gangrene; E66.09 Other obesity due to excess calories; Z68.32 Body mass index [BMI] 32.0-32.9, adult; H40.9 Unspecified glaucoma; D69.6 Thrombocytopenia, unspecified; R79.89 Other specified abnormal findings of blood chemistry; K76.0 Fatty (change of) liver, not elsewhere classified; R00.0 Tachycardia, unspecified
CPT/HCPCS: 93000; 99214; G2211

== ENCOUNTER 2024-10-08 10:15 | Outpatient (REF) | payer MEDICARE, SELFPAY ==
[2024-10-08 13:04] LABS: MANUAL DIFF FLAG NO
[2024-10-08 13:18] LABS: Basophils Percent Auto 0.6 % (0-2); Eosinophils Absolute Auto 0.3 X10*3/uL (0.0-0.4); Eosinophils Percent Auto 4.6 % (0-4); Hematocrit 44.5 % (42.0-52.0); Hemoglobin 14.7 g/dl (14.0-18.0); Imm Gran Abs Auto 0.02 X10*3/uL (0.00-0.03); Imm Gran Pct Auto 0.3 % (0.0-0.4); Lymphocytes Absolute Auto 1.6 X10*3/uL (1.2-4.9); Lymphocytes Percent Auto 24.1 % (20-40); Mean Corpuscular Volume 93.9 fL (80.0-98.0); Mean Platelet Volume 11.8 fL (9.4-12.4); Monocytes Absolute Auto 0.5 X10*3/uL (0.1-1.2); Neutrophils Absolute Auto 4.2 x10*3/uL (2.0-8.3); Neutrophils Percent Auto 63.4 % (45-73); Platelet Count 156 X10*3/uL (160-400); Red Blood Count 4.74 X10*6/uL (4.60-5.80); White Blood Count 6.6 X10*3/uL (4.8-10.8)
[2024-10-08 13:28] LABS: Estimated Average Glucose 117 mg/dL; Hemoglobin A1C 147.6867 umol/L; Hemoglobin A1c % 5.7 % (<6.0); Total Hemoglobin (HGBA1C) 3795.3985 umol/L
[2024-10-08 13:33] LABS: Alanine Aminotransferase 32 U/L (0-40); Albumin Level 4.3 g/dL (3.5-5.0); Alkaline Phosphatase 59 U/L (39-117); Anion Gap 10 (12-20); Aspartate Amino Transferase 29 U/L (5-37); Bilirubin Total 0.7 mg/dL (0.0-1.0); Blood Urea Nitrogen 15 mg/dL (9-16); Carbon Dioxide 29 mmol/L (22-29); Chloride 107 mmol/L (96-108); Cholesterol 159 mg/dL (<200); Estimated Glomerular Filt Rate > 60; Glucose Fasting 121 mg/dL (60-99); HDL Cholesterol 43 mg/dL (>40); LDL Cholesterol Calculated 92 mg/dL (<100); Potassium 4.1 mmol/L (3.3-5.1); Sodium 142 mmol/L (135-145); Total Protein 7.9 g/dL (6.5-8.0); Triglycerides 122 mg/dL (<150)
[2024-10-08 13:50] LABS: TSH reflex Free T4 0.42 uIU/mL (0.32-4.0)
== END 2024-10-08 10:16 | disposition home or self-care (01) ==
LOC: HO.HMGCLDS 10:15
PROVIDERS: PCP Internal Medicine; Visit Provider Internal Medicine
DX: R00.0 Tachycardia, unspecified (principal); D69.6 Thrombocytopenia, unspecified; H40.9 Unspecified glaucoma; E66.09 Other obesity due to excess calories; Z68.32 Body mass index [BMI] 32.0-32.9, adult; K42.9 Umbilical hernia without obstruction or gangrene; R73.03 Prediabetes; N40.0 Benign prostatic hyperplasia without lower urinary tract symptoms; K76.0 Fatty (change of) liver, not elsewhere classified; I10 Essential (primary) hypertension
CPT/HCPCS: 36415; 80053; 80061; 83036; 84443; 85025

== ENCOUNTER 2024-10-15 12:56 | Outpatient (AMB) | payer MEDICARE, SELFPAY ==
[2024-10-15 13:00] VITALS: BP 120/70; PULSE 78; O2SAT 99; BMI 29.8
--- NOTE | 2024-10-15 13:00 | MHC.PC.OV ---
Vital Signs 10/15/24 13:00 Height 5 ft 5 in Weight 179 lb BMI 29.8 BP 120/70 Blood Pressure Location Rt brachial Position Sitting Pulse 78 Pulse Source Pulse Oximeter Pulse Oximetry (%) 99 Oxygen Delivery Method Room Air Intake Visit Reasons: 6m f/u Allergies No Known Allergies Allergy (Verified 10/15/24 13:00) Medication List - Last Reconciled 10/15/24 by Alexsander Haines MD cholecalciferol (vitamin D3) 25 mcg PO DAILY fluticasone propionate 50 mcg/actuation 1 spray intranasal ONCE 90 days lisinopril 10 mg PO DAILY 90 days sildenafil 100 mg PO DAILY PRN terazosin 10 mg PO DAILY timolol maleate 0.5% 1 drp ophthalmic (eye) DAILY Tobacco use date assessed: 10/15/24 Fall risk assessment: No Falls in past year Last assessed Fall Risk: 10/15/24 Dental Screening Dental Screen Date: 04/18/24 HPI 6m f/u HPI Details - The patient is a 69-year-old male presenting with follow-up for chronic conditions including hypertension, hernia, and prediabetes. - Essential Hypertension: Patient has been on Lisinopril 10 mg. Blood pressure reported to be good. No recent changes in medication or symptoms discussed. - Inguinal Hernia: Patient reports hernia getting bigger, requiring surgical intervention soon. Currently stable with no acute complications but noted growth. - Prediabetes: Fasting blood sugar is 121, indicating risk but no diagnosis of diabetes. Advised on lifestyle modifications to manage. - Nasal [place] Requirement: Patient taking nasal spray, specifically Fluticasone, requests a refill. - Colonoscopy: Scheduled for November [address] Marc at [facility]. Upcoming preventative screening noted. Problem List - Essential Hypertension - Inguinal Hernia - Prediabetes - Requirement for Nasal [place] Refill - Scheduled Colonoscopy Patient Instructions - Lose weight and adopt a healthy diet to manage prediabetes risk. - Continue taking Lisinopril 10 mg daily. - Refill Fluticasone nasal spray as needed. - Follow up for scheduled colonoscopy on November 14. - Monitor for any changes or worsening of hernia symptoms. Review of Systems - Cardiovascular: Denies chest pain, denies swelling. - General: Reports feeling well overall. - Neurological: No headaches no dizziness - Ear nose throat: No sore throat no hearing difficulty no ear pain - Gastrointestinal: No nausea vomiting or diarrhea - Endocrine: No polyuria polydipsia no heat intolerance - Genitourinary: No dysuria , no blood in urine Physical Exam General: No acute distress HEENT: No acute findings Neck: Supple Respiratory system: Able to talk in full sentences, no audible wheeze cardiovascular: S1-S2 regular in rate and rhythm Gastrointestinal: Hernia getting bigger, will need surgery soon Extremities: No new findings FIN[employer]ER WALLBOARD [employer] PLASTERBOARD: Alert awake oriented x3 motor sensory intact Skin: Normal turgor PFSH Medical History Umbilical hernia LFT elevation Obesity Pre-diabetes Benign prostatic hyperplasia Fatty liver Hypertension, essential Surgical History History of vasectomy Family History Father Lung cancer Mother Cancer Brother No problems noted. Sister No problems noted. Social History Housing: Condominium Alcohol intake: former Patient Tobacco Use Status: Never used Tobacco e-Cigarette/Vaping Use: Never Used Second Hand Smoke Exposure: No service: Yes Current occupational status: unemployed Cognitive needs: No Hearing needs: No Vision needs: Yes Questionnaire PHQ-9 Over the last 2 weeks, how often have you been bothered by any of the following problems? 1. Little interest or pleasure in doing things: not at all 2. Feeling down, depressed, or hopeless: not at all 3. Trouble falling or staying asleep, or sleeping too much: not at all 4. Feeling tired or having little energy: not at all 5. Poor appetite or overeating: not at all 6. Feeling bad about yourself - or that you are a failure or have let yourself or your family down: not at all 7. Trouble concentrating on things, such as reading the newspaper or watching television: not at all 8. Moving or speaking so slowly that other people could have noticed. Or the opposite - being so fidgety or restless that you have been moving around a lot more than usual: not at all 9. Thoughts that you would be better off or of hurting yourself in some way: not at all Total score: 0 Depression Screening Interpretation: Negative Depression Screening Done: Yes 29301 - PHQ-9 Billing: Yes Source: Developed by Drs. Jamie Kohler, Marie Naqvi, Rafat Alcala and colleagues, with an educational chay from [employer]. Thrive Questionnaire Date Thrive assessed: 04/18/24 I am a: Patient What is your living situation today?: I have a steady place to live Within the past 12 months, did the food you bought not last and you didn't have the money to get more?: Never true Within the past 12 months, did you worry whether your food would run out before you got money to buy more?: Never true Do you have trouble paying for medicines?: No Do you have trouble getting transportation to medical appointments?: No Do you have trouble paying your heating and electricity bill?: No Do you have trouble taking care of your child, family member or friend?: No Do you have trouble with day-to-day activities such as bathing, preparing meals, shopping, managing finances, etc.?: No Are you currently unemployed and looking for a job?: No Are you interested in more education?: Yes Please select the resources that you would like help with: None Currently or been in a relationship where the following occur: No concerns reported THRIVE Score: 0 AUDIT C Alcohol Use Questionnaire (AUDIT-C) 1. How often do you have a drink containing alcohol?: 2-4 times a month 2. How many drinks containing alcohol do you have on a typical day when you are drinking?: 1 or 2 3. How often do you have six or more drinks on one occasion?: Never Total Score: 2 Score Reviewed/Action Taken: Yes NINFA-7 AMB Questionnaire NINFA-7 Date NINFA - 7 assessed: 04/18/24 Feeling nervous, anxious, or on edge: 0 = Not at all Not being able to stop or control worryin = Not at all Worrying too much about different things: 0 = Not at all Trouble relaxin = Not at all Being so restless that it is hard to sit still: 0 = Not at all Becoming easily annoyed or irritable: 0 = Not at all Feeling afraid as if something awful might happen: 0 = Not at all Total NINFA-7 score (0-4 normal; 5-9 mild; 10-14 moderate; 15-21 severe): 0 Source: Developed by Drs. Jamie Kohler, Marie Naqvi, Rafat Alcala and colleagues, with an educational chay from [employer]. NINFA-7 Assessment Billing NINFA-7 Assessment Tool: NINFA-7 Assessment 49285 Physical exam (Primary Care) Vital Signs: Last Vital Signs Pulse 78 10/15/24 13:00 BP 120/70 10/15/24 13:00 Pulse Ox 99 10/15/24 13:00 Oxygen Delivery Method Room Air 10/15/24 13:00 BMI result Body Mass Index 29.8 Tobacco/Smoking Status: Tobacco use Status Tobacco use date assessed 10/15/24 10/15/24 13:02 Patient Tobacco Use Status Never used Tobacco 10/15/24 13:02 e-Cigarette/Vaping Use Never Used 10/15/24 13:02 PHQ-9: PHQ-9 Score PHQ-9: Total score 0 10/15/24 13:02 Depression Screening Interpretation: Negative Thrive Assessment: Date of Thrive Assessment Date Thrive assessed 04/18/24 10/15/24 13:02 Currently or been in a relationship where the following occur: No concerns reported Coding Level of Care Code Est Pt Level 3 (01857) Complex EM visit Add On G2211 Diagnoses Umbilical hernia without obstruction and without gangrene K42.9 Obstruction and gangrene presence: without obstruction or gangrene Pre-diabetes R73.03 Hypertension, essential I10 Allergic rhinitis due to other allergic trigger, unspecified seasonality J30.89 Allergic rhinitis seasonality: unspecified Allergic rhinitis trigger: other Vitamin D deficiency E55.9 Overweight (BMI 25.0-29.9) E66.3 Additional Codes PHQ-9 - 88467 - PHQ-9 Billing: Yes ([id number]) NINFA-7 Assessment Billing - NINFA-7 Assessment Tool: NINFA-7 Assessment 74149 ([id number]) Assessment & Plan Assessment & Plan (1) Umbilical hernia: Code(s): K42.9 - Umbilical hernia without obstruction or gangrene Category: Medical Qualifiers: Obstruction and gangrene presence: without obstruction or gangrene Qualified Code(s): K42.9 - Umbilical hernia without obstruction or gangrene (2) Pre-diabetes: Code(s): R73.03 - Prediabetes Category: Medical (3) Hypertension, essential: Code(s): I10 - Essential (primary) hypertension Category: Medical (4) Allergic rhinitis: Code(s): J30.9 - Allergic rhinitis, unspecified Category: Medical Qualifiers: Allergic rhinitis seasonality: unspecified Allergic rhinitis trigger: other Qualified Code(s): J30.89 - Other allergic rhinitis (5) Vitamin D deficiency: Code(s): E55.9 - Vitamin D deficiency, unspecified Category: Medical (6) Overweight (BMI 25.0-29.9): Code(s): E66.3 - Overweight Category: Medical Plan - The patient is a 69-year-old male presenting with follow-up for chronic conditions including hypertension, hernia, and prediabetes. - Essential Hypertension: Patient has been on Lisinopril 10 mg. Blood pressure reported to be good. No recent changes in medication or symptoms discussed. - Inguinal Hernia: Patient reports hernia getting bigger, requiring surgical intervention soon. Currently stable with no acute complications but noted growth. - Prediabetes: Fasting blood sugar is 121, indicating risk but no diagnosis of diabetes. Advised on lifestyle modifications to manage. - Nasal [place] Requirement: Patient taking nasal spray, specifically Fluticasone, requests a refill. - Colonoscopy: Scheduled for November [address] Marc at [facility]. Upcoming preventative screening noted. Problem List - Essential Hypertension - Inguinal Hernia - Prediabetes - Requirement for Nasal [place] Refill - Scheduled Colonoscopy Patient Instructions - Lose weight and adopt a healthy diet to manage prediabetes risk. - Continue taking Lisinopril 10 mg daily. - Refill Fluticasone nasal spray as needed. - Follow up for scheduled colonoscopy on November 14. - Monitor for any changes or worsening of hernia symptoms. Follow-up 6 months Medications: Refilled lisinopril 10 mg PO DAILY 90 tabs 1RF 90 days I10 - Essential (primary) hypertension fluticasone propionate 50 mcg/actuation 1 spray intranasal ONCE 3 multiple units 1RF 90 days
== END 2024-10-15 13:21 | disposition home or self-care (01) ==
PROVIDERS: PCP Internal Medicine; Visit Provider Internal Medicine
DX: K42.9 Umbilical hernia without obstruction or gangrene (principal); R73.03 Prediabetes; I10 Essential (primary) hypertension; J30.89 Other allergic rhinitis; E55.9 Vitamin D deficiency, unspecified; E66.3 Overweight

== ENCOUNTER → 2024-10-15 12:56 | Outpatient (BNVA) | payer MEDICARE, SELFPAY | PROVIDERS: PCP Internal Medicine; Visit Provider Internal Medicine | DX: K42.9 Umbilical hernia without obstruction or gangrene (principal); R73.03 Prediabetes; I10 Essential (primary) hypertension; J30.89 Other allergic rhinitis; E55.9 Vitamin D deficiency, unspecified; E66.3 Overweight | CPT/HCPCS: 96127; 99212 ==

== ENCOUNTER → 2024-11-14 06:00 | Outpatient (BNV) | payer MEDICARE, SELFPAY | PROVIDERS: PCP Internal Medicine; Visit Provider Internal Medicine | DX: Z01.810 Encounter for preprocedural cardiovascular examination (principal) | CPT/HCPCS: 93010 ==

== ENCOUNTER 2024-11-14 11:27 | Day surgery (SDC) | payer MEDICARE, SELFPAY ==
[2024-11-12 15:28] VITALS: BMI 30.2
--- NOTE | 2024-11-14 06:00 | ECG_ITS ---
Test Reason : pre op Blood Pressure : */* mmHG Vent. Rate : 89 BPM Atrial Rate : 89 BPM P-R Int : 174 ms QRS Dur : 84 ms QT Int : 360 ms P-R-T Axes : 33 55 28 degrees QTcB Int : 438 ms Normal sinus rhythm Normal ECG No previous ECGs available Referred By: Becka Maguire Electronically Signed By: DONN FONTAINE
[2024-11-14 12:26] VITALS: BP 142/94; PULSE 91; RESP 12; TEMP 36.6; O2SAT 96; BMI 29.7
[2024-11-14] MEDS: Lactated Ringers 1,000 ML 80 ML IVCONT (12:34)
--- NOTE | 2024-11-14 13:54 | HO.ANESPROP2 ---
HPI - Anesthesia Eval Consult details Narrative: colon screen [facility] Active Problems Active Problems: All Active Problems Overweight (BMI 25.0-29.9) (Acute) Vitamin D deficiency (Acute) Allergic rhinitis (Acute) Colon cancer screening (Acute) Tachycardia (Acute) Thrombocytopenia (Acute) Wheezing (Acute) Glaucoma (Acute) Obesity due to excess calories (Acute) Blurring of vision (Acute) Impacted cerumen of both ears (Acute) Erectile dysfunction due to arterial insufficiency (Acute) Umbilical hernia (Acute) LFT elevation (Acute) Obesity (Acute) Pre-diabetes (Acute) Benign prostatic hyperplasia (Acute) Fatty liver (Acute) Hypertension, essential (Acute) Past Medical History Medical History Allergic rhinitis Glaucoma Umbilical hernia LFT elevation Obesity Pre-diabetes Benign prostatic hyperplasia Fatty liver Hypertension, essential Family History Family History Father Lung cancer Mother Cancer Brother No problems noted. Sister No problems noted. Family history of problems with anesthesia: No Surgical History Surgical History History of surgery on lower extremity Hx of colonoscopy (2007) History of vasectomy History of Problems with Anesthesia: No Social History Social History [facility] Are you a primary home health care physician to a significant other at home: No Do you presently have visiting nurse or other home services: No Alcohol intake: former Patient Tobacco Use Status: Never used Tobacco e-Cigarette/Vaping Use: Never Used Second Hand Smoke Exposure: No Use of substances other than those prescribed or required for medical reasons: No Have you been hit, kicked, punched, or otherwise hurt by someone within the past year? If so, by whom?: No Are you DNR?: No Advance Directives: No Advance Directives Information Provided: Yes Recently lost weight without trying: No Nutrition Risks: No Nutritional Risk service: Yes Current occupational status: unemployed Cognitive needs: No Hearing needs: No Vision needs: Yes Meds Allergies Allergy/AdvReac Type Severity Reaction Status Date / Time No Known Allergies Allergy Verified 11/14/24 12:16 Active Medications: Current Medications Lactated Ringer's (Lr) 1,000 mls @ 80 mls/hr IVCONT .[id number] MAIA Last Admin: 11/14/24 12:34 Dose: 80 mls/hr Sodium Biphosphate/Sodium Phosphate (Sodium Phosphate,[place]-Dibasic 133 Ml Enema) 133 ml [place] ONCE PRN PRN Reason: Poor Colonoscopy Prep Results Home Medications ?Medication ?Instructions ?Recorded ?Confirmed ?Last Taken ?Type cholecalciferol (vitamin D3) 25 25 mcg PO DAILY 06/29/20 11/14/24 Unknown History mcg (1,000 unit) capsule timolol maleate 0.5 % eye drops 1 drp ophthalmic (eye) DAILY 09/02/20 11/14/24 11/14/24 History Exam Height,Weight and Vital Signs: Height 5 ft 4.5 in Weight 79.832 kg Last Vital Signs Temp 97.9 F 11/14/24 12:26 Pulse 91 11/14/24 12:26 Resp 12 11/14/24 12:26 BP 142/94 H 11/14/24 12:26 Pulse Ox 96 11/14/24 12:26 O2 Del Method Room Air 11/14/24 12:26 Airway Mallampati Class: II TM Dist: >3cm Neck ROM: Full Heart: rrr Lungs: cta Assessment and Plan Assessment Anesthesia Assessment: Anesthesia Plan Discussed and Chart Reviewed Final Anesthetic Review Family History of Problems with Anesthesia: No History of Problems with Anesthesia: No NPO: Yes ASA Class: II Final Preanesthetic Review: No Changes in Pt Med Stat, Meds/Allgs Chart Reviewed, Consent Obtained/Reviewed and Anes Risks/Benef Reviewed Patient Risk: Intermediate Procedure Risk: Low Anesthetic Plan Anesthetic Plan: MAC: Disposition: Standard PACU
[2024-11-14 14:23] VITALS: BP 129/86; PULSE 80; RESP 12; TEMP 36.2; O2SAT 97
--- NOTE | 2024-11-14 14:28 | P.BOP_ITS ---
Brief Operative Note Date of Service: 11/14/24 Pre-op diagnosis: Screening Post-op diagnosis: other (Colon polyp) Procedure: Colonoscopy to the cecum and TI with hot snare polypectomy x 1 Surgeon: Jamie Marc MD Anesthesia: MAC Was an Supervisor Facepiece Line used for this Procedure?: No Estimated blood loss (mL): 0 Pathology: other (A. Transverse colon polyp) Condition: stable Disposition: PACU
[2024-11-14 14:38] VITALS: BP 142/95; PULSE 80; RESP 15; TEMP 36.7; O2SAT 98
--- NOTE | 2024-11-15 01:04 | OP_ITS ---
DATE OF SERVICE: 11/14/2024 SURGEON: Jamie Marc MD INDICATIONS: The patient presents for evaluation of colorectal cancer screening and personal history of tubular adenoma of the colon. Full consent was obtained from him for this, including risks of bleeding and perforation. PREOPERATIVE DIAGNOSIS: POSTOPERATIVE DIAGNOSIS: PROCEDURE PERFORMED: Colonoscopy to cecum and terminal ileum with hot snare polypectomy. ESTIMATED BLOOD LOSS: COMPLICATIONS: ANESTHESIA: Monitored anesthesia care. ASSISTANTS: SPECIMENS: PREOPERATIVE DIAGNOSES: Colorectal cancer screening and personal history of tubular adenoma of the colon. POSTOPERATIVE DIAGNOSES: Colorectal cancer screening and personal history of tubular adenoma of the colon, small colon polyp, diverticulosis, internal hemorrhoids. DESCRIPTION OF PROCEDURE: The patient was placed in the left lateral decubitus position. The digital rectal exam revealed no abnormalities. The Olympus video pediatric colonoscope was entered into the rectum and advanced easily to the cecum. Once in the cecum, I did identify normal-appearing cecal pouch with appendiceal orifice and a normal-appearing ileocecal valve. The terminal ileum was cannulated and appeared normal. Scope was withdrawn back in the colon. The entire cecum and ileocecal valve appeared normal. The scope was slowly withdrawn assessing all mucosal surfaces carefully. Preparation was excellent. In the proximal transverse colon, there was an approximately 8 mm polyp, which was removed by hot snare polypectomy and recovered by suction. The polypectomy site appeared clean, without any sign of residual polyp nor bleeding. I did not visualize any other polyps, colitis, nor angiodysplasia. There was a mild amount of sigmoid diverticulosis. In the rectum, scope was retroflexed visualizing internal hemorrhoids, but no other pathology. The rectal mucosa appeared normal. Scope was straightened and withdrawn from the patient. He tolerated the procedure well and was returned to recovery area in stable condition. IMPRESSION: 1. Colon polyp. 2. Diverticulosis. 3. Internal hemorrhoids. PLAN: The results of the pathology will be checked. I would recommend a repeat colonoscopy in 5 years. He will otherwise see me on a p.r.n. basis. MD BOUCHRA Ferreira/MP / [phone] MTDKumar
== END 2024-11-14 15:01 | disposition home or self-care (01) ==
PROVIDERS: PCP Internal Medicine; Visit Provider Internal Medicine
PROC: 0DJD8ZZ Inspection of Lower Intestinal Tract, Via Natural or Artificial Opening Endoscopic (ICD-10-PCS; CPT 45378; principal; 2024-11-14 14:00)
DX: Z12.11 Encounter for screening for malignant neoplasm of colon (principal); Z86.0101 Personal history of adenomatous and serrated colon polyps; D12.3 Benign neoplasm of transverse colon; K57.30 Diverticulosis of large intestine without perforation or abscess without bleeding; K64.8 Other hemorrhoids; K76.0 Fatty (change of) liver, not elsewhere classified; R74.8 Abnormal levels of other serum enzymes; N40.0 Benign prostatic hyperplasia without lower urinary tract symptoms; I10 Essential (primary) hypertension; H40.9 Unspecified glaucoma; Z79.51 Long term (current) use of inhaled steroids; Z79.899 Other long term (current) drug therapy; Z98.890 Other specified postprocedural states
CPT/HCPCS: 45385; 88305; 93005; J2704

== ENCOUNTER 2025-04-13 09:15 | Outpatient (REF) | payer MEDICARE, SELFPAY ==
--- OUTSIDE RECORDS SUMMARY | 2024-11-14 10:00 | XMS_ITS ---
Author Organization [facility] Address [address] [place] [id number] Care Team Providers Care Cigar Bander Name Role Phone Zaki PAUL, [facility] Primary [facility] Provider Jamie Clark [phone] REASON FOR VISIT screening,hx polyps Problems Problem Type SNOMED Code ICD Code Onset Dates Problem Status W/U Status Risk Notes Problem Diverticulosis o f large intestine without perforation or abscess without bleeding (K57.30) Active confirmed Encounters Encounter Location Date Provider Diagnosis [facility] Outpatient [address], [place] [id number] 11/14/2024 Jamie Marc Colon cancer scree sunny Z12.11 ; Colon polyp K63.5 ; Diverticulosis of large intestine without perforation or abscess without bleeding K57.30 and Other hemorrhoids K64.8 Assessments Encounter Date Diagnosis (ICD Code) Assessment Notes Treatment Notes Treatment Clinical Notes Section Notes 11/14/2024 Colon cancer screening (ICD-10 - Z12.11) 11/14/2024 Colon polyp (ICD-10 - K63.5) 11/14/2024 Diverticulosis of large intestine without perforation or abscess without bleeding (ICD-10 - K57.30) 11/14/2024 Other hemorrhoids (ICD-10 - K64.8) Plan Of Treatment No Information Progress Notes * MICHAEL TEAGUE MINDOB:1955 ([age] yo M)Acc No.[id number]:11/14/2024 COLON WITH MAC Patient: MICHAEL CARTER NICK Provider: Madan Marc MD :1955 A ge:69 Y S ex:Male Date:11/14/2024 Address:[address] [place], [place] [id number] Pcp:Alexsander Haines MD Subjective: * Chief Complaints: * 1 . Screening,hx polyps. * Medical History: Objective: * Vitals: Assessment: * Assessment: 1. C olon cancer screening - Z12.11 (Primary) 2 . C olon polyp - K63.5 3 . D iverticulosis of large intestine without perforation or abscess without bleeding - K57.30 4 . O ther hemorrhoids - K64.8 Plan: * Treatment: * Procedure Codes: 4 5385 LESION REMOVAL COLONOSCOPY, Modifiers: PT , 0529F INTRVL 3+YRS PTS CLNSCP DOCD, 0528F RCMND FLW-UP 10 YRS DOCD, Modifiers: 1P * * The named appointment provid er may or may not be the originator of this progress note, and it is not deemed complete until electronically signed by the appointment provider. Sign off status: Pending * Provider: Madan Marc MD Date: 0 11/14/2024 Generated for Gabriella schwartz/Lydia/Magitting on: 0 04/13/2025 09:39 AM EDT
[2025-04-13 10:07] LABS: MANUAL DIFF FLAG NO
[2025-04-13 10:23] LABS: Hematocrit 41.4 % (42.0-52.0); Hemoglobin 13.8 g/dl (14.0-18.0); Imm Gran Abs Auto 0.01 X10*3/uL (0.00-0.03); Imm Gran Pct Auto 0.2 % (0.0-0.4); Lymphocytes Absolute Auto 1.8 X10*3/uL (1.2-4.9); Mean Corpuscular HGB Conc 33.3 g/dl (31.0-36.0); Mean Corpuscular Hemoglobin 30.9 pg (27.0-33.0); Mean Corpuscular Volume 92.6 fL (80.0-98.0); NRBC Abs Auto 0.000 X10*3/uL (0.0-0.012); NRBC Pct Auto 0.0 /100WBC (0.0-0.2); Platelet Count 157 X10*3/uL (160-400); Red Blood Count 4.47 X10*6/uL (4.60-5.80); White Blood Count 6.5 X10*3/uL (4.8-10.8)
[2025-04-13 10:26] LABS: Hemoglobin A1C 147.6102 umol/L; Total Hemoglobin (HGBA1C) 3639.4243 umol/L
[2025-04-13 10:59] LABS: Alanine Aminotransferase 28 U/L (0-40); Albumin Level 4.3 g/dL (3.5-5.0); Alkaline Phosphatase 62 U/L (39-117); Anion Gap 12 (12-20); Aspartate Amino Transferase 30 U/L (5-37); Blood Urea Nitrogen 12 mg/dL (9-16); Calcium 9.1 mg/dL (8.4-10.2); Carbon Dioxide 26 mmol/L (22-29); Chloride 106 mmol/L (96-108); Estimated Glomerular Filt Rate > 60; Potassium 4.2 mmol/L (3.3-5.1); Sodium 140 mmol/L (135-145); Total Protein 7.5 g/dL (6.5-8.0)
== END 2025-04-13 09:16 | disposition home or self-care (01) ==
LOC: HO.HMGCLDS 09:15
PROVIDERS: PCP Internal Medicine; Visit Provider Internal Medicine
DX: I10 Essential (primary) hypertension (principal); D69.6 Thrombocytopenia, unspecified; R73.03 Prediabetes
CPT/HCPCS: 36415; 80053; 83036; 85025

== ENCOUNTER 2025-05-13 14:03 | Outpatient (AMB) | payer MEDICARE, SELFPAY ==
--- OUTSIDE RECORDS SUMMARY | 2024-11-14 10:00 | XMS_ITS ---
Author Organization [facility] Address [address] [place] [id number] Care Team Providers Care Fuel Oil Clerk Name Role Phone Zaki PAUL, [facility] Primary [facility] Provider Jamie Clark [phone] REASON FOR VISIT screening,hx polyps Problems Problem Type SNOMED Code ICD Code Onset Dates Problem Status W/U Status Risk Notes Problem Diverticular disease of colon (341740987) Diverticulosis of large intestine without perforation or abscess without bleeding (K57.30) Active confirmed Encounters Encounter Location Date Provider Diagnosis [facility] Outpatient [address], [place] [phone] 11/14/2024 Jamie Marc Colon cancer scree sunny [...] MICHAEL TEAGUE MINDOB:1955 ([age] yo M)Acc No.[id number]:11/14/2024 COLON WITH MAC Patient: MICHAEL CARTER Provider: Madan Marc MD :1955 A ge:69 Y S ex:Male Date:11/14/2024 Address:[address] [place] [address] Pcp:Alexsander Haines MD Subjective: * Chief Complaints: [...] 11/14/2024 Generated for Gabriella schwartz/Lydia/Magitting on: 0 05/13/2025 02:59 PM EDT
--- NOTE | 2025-05-13 14:04 | A.OFFPC_ITS ---
Vital Signs 05/13/25 14:05 Height 5 ft 4.5 in Weight 176 lb BMI 29.7 BP 122/80 Blood Pressure Location Lt brachial Position Sitting Pulse 83 Pulse Source Pulse Oximeter Pulse Oximetry (%) 97 Intake Visit Reasons: f/u Allergies No Known Allergies Allergy (Verified 05/13/25 14:05) Medication List - Last Reconciled 05/13/25 by Alexsander Haines MD cholecalciferol (vitamin D3) 25 mcg PO DAILY fluticasone propionate 50 mcg/actuation 1 spray intranasal DAILY lisinopril 10 mg PO DAILY 90 days sildenafil 100 mg PO DAILY PRN terazosin 10 mg PO DAILY timolol maleate 0.5% 1 drp ophthalmic (eye) DAILY Tobacco use date assessed: 10/15/24 Fall risk assessment: No Falls in past year Last assessed Fall Risk: 05/13/25 Dental Screening Dental Screen Date: 05/13/25 Did you have a dental visit in the last 12 months?: Yes Did you have a dental problem in the last 6 months where you did not have access to dental care?: No Was dental information given to patient?: Patient has dentist HPI f/u HPI Details Longitudinal care visit History of Present Illness The patient is a 69-year-old male Anemia: - The recent laboratory tests indicate a decrease in hemoglobin from 14.7 in September to 13.8, along with microcytic indices. - The anemia was initially identified th year and the hemoglobin levels have shown slight fluctuation over time. Umbilical Hernia: - The patient has a reducible umbilical hernia. - He has chosen not to pursue any surgic al intervention at this time. Medical History: - Essential Hypertension - Allergic rhinitis - Anemia (as indicated by recent lab res ults) Medications: - Lisinopril 10 mg daily for hypertensio n - Vitamin D supplement - Nasal spray for allergic rhinitis - Cialis as prescribed by Urology - Terazosin as prescribed by Urology Social History: - Body Mass Index (BMI) is 29.7, indicat ing overweight status. Diagnostic Results: - Labs: - Hemoglobin: 13.8 (decreased fr om prior 14.7) - Microcytic indices noted - Platelet count: 154 - Electrolytes: within normal limits - Kidney function: within normal limits - Liver enzymes: within normal limits - Hemoglobin A1c: 5.9 Problem List - Anemia - Essential Hypertension - Overweight - Umbilical Hernia - erectile dysfunction Patient Instructions - Maintain current medication regimen. - Continue routine follow-ups every six months with necessary fasting labs 2 days prior to the appointment. - Monitor weight and aim for weight redu ction. - Continue with prescribed nasal spray f or allergic rhinitis. - Lifestyle modifications including diet and exercise recommended for weight management. - continue follow up with Urology Review of Systems - General: No fever no chills - Neurological: No headaches no dizziness - Ear nose throat: No sore throat no hearing difficulty no ear pain - Cardiovascular: No syncope, no chest pain, no palpitations - Gastrointestinal: No nausea vomiting or diarrhea - Endocrine: No polyuria polydipsia no heat intolerance - Genitourinary: No dysuria , no blood in urine Physical Exam General: No acute distress HEENT: No acute findings Neck: Supple Respiratory system: Able to talk in full sentences, no audible wheeze, lungs good Cardiovascular: S1-S2 regular in rate and rhythm, heart good, blood pressure 122/80 Gastrointestinal: No pain, reducible umbilical hernia Extremities: No new findings, no swelling NON[employer] ANIMAL CARETAKER: Alert awake oriented x3 motor sensory intact Skin: Normal turgor PFSH Medical History Allergic rhinitis Glaucoma Umbilical hernia LFT elevation Obesity Pre-diabetes Benign prostatic hyperplasia Fatty liver Hypertension, essential Surgical History History of surgery on lower extremity Hx of colonoscopy (2007) History of vasectomy History of colonoscopy Family History Father Lung cancer Mother Cancer Brother No problems noted. Sister No problems noted. Social History Housing: Condominium Are you a primary reproductive healthcare assistant to a significant other at home: No Do you presently have visiting nurse or other home services: No Alcohol intake: former Patient Tobacco Use Status: Never used Tobacco e-Cigarette/Vaping Use: Never Used Second Hand Smoke Exposure: No service: Yes Current occupational status: unemployed Cognitive needs: No Hearing needs: No Vision needs: Yes Questionnaire PHQ-9 Over the last 2 weeks, how often have you been bothered by any of the following problems? 1. Little interest or pleasure in doing things: not at all 2. Feeling down, depressed, or hopeless: not at all 3. Trouble falling or staying asleep, or sleeping too much: not at all 4. Feeling tired or having little energy: not at all 5. Poor appetite or overeating: not at all 6. Feeling bad about yourself - or that you are a failure or have let yourself or your family down: not at all 7. Trouble concentrating on things, such as reading the newspaper or watching television: not at all 8. Moving or speaking so slowly that other people could have noticed. Or the opposite - being so fidgety or restless that you have been moving around a lot more than usual: not at all 9. Thoughts that you would be better off or of hurting yourself in some way: not at all Total score: 0 Depression Screening Interpretation: Negative Depression Screening Done: Yes 92958 - PHQ-9 Billing: Yes Source: Developed by Drs. Jamie Kohler, Marie Naqvi, Rafat Alcala and colleagues, with an educational chay from [employer]. Thrive Questionnaire Date Thrive assessed: 10/15/24 I am a: Patient What is your living situation today?: I have a steady place to live Within the past 12 months, did the food you bought not last and you didn't have the money to get more?: Never true Within the past 12 months, did you worry whether your food would run out before you got money to buy more?: Never true Do you have trouble paying for medicines?: No Do you have trouble getting transportation to medical appointments?: No Do you have trouble paying your heating and electricity bill?: No Do you have trouble taking care of your child, family member or friend?: No Do you have trouble with day-to-day activities such as bathing, preparing meals, shopping, managing finances, etc.?: No Are you currently unemployed and looking for a job?: No Are you interested in more education?: Yes Please select the resources that you would like help with: None Currently or been in a relationship where the following occur: No concerns reported THRIVE Score: 0 NINFA-7 AMB Questionnaire NINFA-7 Date NINFA - 7 assessed: 05/13/25 Feeling nervous, anxious, or on edge: 0 = Not at all Not being able to stop or control worryin = Not at all Worrying too much about different things: 0 = Not at all Trouble relaxin = Not at all Being so restless that it is hard to sit still: 0 = Not at all Becoming easily annoyed or irritable: 0 = Not at all Feeling afraid as if something awful might happen: 0 = Not at all Total NINFA-7 score (0-4 normal; 5-9 mild; 10-14 moderate; 15-21 severe): 0 Source: Developed by Drs. Jamie Kohler, Marie Naqvi, Rafat Alcala and colleagues, with an educational chay from [employer]. NINFA-7 Assessment Billing NINFA-7 Assessment Tool: NINFA-7 Assessment 11476 Physical exam (Primary Care) Vital Signs: Last Vital Signs Pulse 83 05/13/25 14:05 BP 122/80 05/13/25 14:05 Pulse Ox 97 05/13/25 14:05 BMI result Body Mass Index 29.7 Tobacco/Smoking Status: Tobacco use Status Tobacco use date assessed 10/15/24 05/13/25 14:07 Patient Tobacco Use Status Never used Tobacco 05/13/25 14:07 e-Cigarette/Vaping Use Never Used 05/13/25 14:07 PHQ-9: PHQ-9 Score PHQ-9: Total score 0 05/13/25 14:07 Depression Screening Interpretation: Negative Thrive Assessment: Date of Thrive Assessment Date Thrive assessed 10/15/24 05/13/25 14:07 Currently or been in a relationship where the following occur: No concerns reported Coding Level of Care Code Est Pt Level 4 (90762) Complex EM visit Add On G2211 Diagnoses Hypertension, essential I10 Fatty liver K76.0 Benign prostatic hyperplasia without lower urinary tract symptoms N40.0 Lower urinary tract symptom presence: symptoms absent Pre-diabetes R73.03 Umbilical hernia without obstruction and without gangrene K42.9 Obstruction and gangrene presence: without obstruction or gangrene Allergic rhinitis due to other allergic trigger, unspecified seasonality J30.89 Allergic rhinitis trigger: other Allergic rhinitis seasonality: unspecified Vitamin D deficiency E55.9 Overweight (BMI 25.0-29.9) E66.3 Additional Codes NINFA-7 Assessment Billing - NINFA-7 Assessment Tool: NINFA-7 Assessment 95851 ([id number]) PHQ-9 - 25492 - PHQ-9 Billing: Yes ([id number]) Assessment & Plan Assessment & Plan (1) Hypertension, essential: Code(s): I10 - Essential (primary) hypertension Category: Medical (2) Fatty liver: Code(s): K76.0 - Fatty (change of) liver, not elsewhere classified Category: Medical (3) Benign prostatic hyperplasia: Code(s): N40.0 - Benign prostatic hyperplasia without lower urinary tract symptoms Category: Medical Qualifiers: Lower urinary tract symptom presence: symptoms absent Qualified C ode(s): N40.0 - Benign prostatic hyperplasia without lower urinary tract symptoms (4) Pre-diabetes: Code(s): R73.03 - Prediabetes Category: Medical (5) Umbilical hernia: Code(s): K42.9 - Umbilical hernia without obstruction or gangrene Category: Medical Qualifiers: Obstruction and gangrene presence: without obstruction or gangrene Qualified Code(s): K42.9 - Umbilical hernia without obstruction or gangrene (6) Allergic rhinitis: Code(s): J30.9 - Allergic rhinitis, unspecified Category: Medical Qualifiers: Allergic rhinitis trigger: other Allergic rhinitis seasonality: unspecified Qualified Code(s): J30.89 - Other allergic rhinitis (7) Vitamin D deficiency: Code(s): E55.9 - Vitamin D deficiency, unspecified Category: Medical (8) Overweight (BMI 25.0-29.9): Code(s): E66.3 - Overweight Category: Medical Plan Longitudinal care visit History of Present Illness The patient is a 69-year-old male Anemia: - The recent laboratory tests indicate a decrease in hemoglobin from 14.7 in September to 13.8, along with microcytic indices. - The anemia was initially identified this year and the hemoglobin levels have shown slight fluctuation over time. Umbilical Hernia: - The patient has a reducible umbilical hernia. - He has chosen not to pursue any surgical intervention at this time. Medical History: - Essential Hypertension - Allergic rhinitis - Anemia (as indicated by recent lab results) Medications: - Lisinopril 10 mg daily for hypertension - Vitamin D supplement - Nasal spray for allergic rhinitis - Cialis as prescribed by Urology - Terazosin as prescribed by Urology Social History: - Body Mass Index (BMI) is 29.7, indicating overweight status. Diagnostic Results: - Labs: - Hemoglobin: 13.8 (decreased from prior 14.7) - Microcytic indices noted - Platelet count: 154 - Electrolytes: within normal limits - Kidney function: within normal limits - Liver enzymes: within normal limits - Hemoglobin A1c: 5.9 Problem List - Anemia - Essential Hypertension - Overweight - Umbilical Hernia - erectile dysfunction Patient Instructions - Maintain current medication regimen. - Continue routine follow-ups every six months with necessary fasting labs 2 days prior to the appointment. - Monitor weight and aim for weight reduction. - Continue with prescribed nasal spray for allergic rhinitis. - Lifestyle modifications including diet and exercise recommended for weight management. - continue follow up with Urology Orders: Orders Hemoglobin A1c 5 Months E55.9 - Vitamin D deficiency, unspecified, E66.3 - Overweight, I10 - Essential (primary) hypertension, J30.89 - Other allergic rhinitis, K42.9 - Umbilical hernia without obstruction or gangrene, K76.0 - Fatty (change of) liver, not elsewhere classified, N40.0 - Benign prostatic hyperplasia without lower urinary tract symptoms, R73.03 - Prediabetes Complete Blood Count Auto Diff 5 Months E55.9 - Vitamin D deficiency, unspecified, E66.3 - Overweight, I10 - Essential (primary) hypertension, J30.89 - Other allergic rhinitis, K42.9 - Umbilical hernia without obstruction or gangrene, K76.0 - Fatty (change of) liver, not elsewhere classified, N40.0 - Benign prostatic hyperplasia without lower urinary tract symptoms, R73.03 - Prediabetes Lipid Panel 5 Months E55.9 - Vitamin D deficiency, unspecified, E66.3 - Overweight, I10 - Essential (primary) hypertension, J30.89 - Other allergic rhinitis, K42.9 - Umbilical hernia without obstruction or gangrene, K76.0 - Fatty (change of) liver, not elsewhere classified, N40.0 - Benign prostatic hyperplasia without lower urinary tract symptoms, R73.03 - Prediabetes Comprehensive [place]. Panel Fast 5 Months E55.9 - Vitamin D deficiency, unspecified, E66.3 - Overweight, I10 - Essential (primary) hypertension, J30.89 - Other allergic rhinitis, K42.9 - Umbilical hernia without obstruction or gangrene, K76.0 - Fatty (change of) liver, not elsewhere classified, N40.0 - Benign prostatic hyperplasia without lower urinary tract symptoms, R73.03 - Prediabetes Ferritin 5 Months E55.9 - Vitamin D deficiency, unspecified, E66.3 - Overweight, I10 - Essential (primary) hypertension, J30.89 - Other allergic rhinitis, K42.9 - Umbilical hernia without obstruction or gangrene, K76.0 - Fatty (change of) liver, not elsewhere classified, N40.0 - Benign prostatic hyperplasia without lower urinary tract symptoms, R73.03 - Prediabetes
[2025-05-13 14:05] VITALS: BP 122/80; PULSE 83; O2SAT 97; BMI 29.7
== END 2025-05-13 14:24 | disposition home or self-care (01) ==
LOC: HO.HMCC 14:04
PROVIDERS: PCP Internal Medicine; Visit Provider Internal Medicine
DX: I10 Essential (primary) hypertension (principal); K76.0 Fatty (change of) liver, not elsewhere classified; N40.0 Benign prostatic hyperplasia without lower urinary tract symptoms; R73.03 Prediabetes; K42.9 Umbilical hernia without obstruction or gangrene; J30.89 Other allergic rhinitis; E55.9 Vitamin D deficiency, unspecified; E66.3 Overweight

== ENCOUNTER → 2025-05-13 14:03 | Outpatient (BNVA) | payer MEDICARE, SELFPAY | PROVIDERS: PCP Internal Medicine; Visit Provider Internal Medicine | DX: I10 Essential (primary) hypertension (principal); D64.9 Anemia, unspecified; K76.0 Fatty (change of) liver, not elsewhere classified; N40.0 Benign prostatic hyperplasia without lower urinary tract symptoms; R73.03 Prediabetes; K42.9 Umbilical hernia without obstruction or gangrene; J30.89 Other allergic rhinitis; E55.9 Vitamin D deficiency, unspecified; E66.3 Overweight; Z68.29 Body mass index [BMI] 29.0-29.9, adult | CPT/HCPCS: 96127; 99212 ==